=== PATIENT | female | born 1960 | race Caucasian/White ===

== ENCOUNTER 2021-04-19 21:22 | Inpatient (IN) | payer MEDICAID, SELFPAY ==
--- NOTE | 2021-04-19 | ECG_ITS ---
Test Reason : Shortness of breath Blood Pressure : / mmHG Vent. Rate : 082 BPM Atrial Rate : 082 BPM P-R Int : 118 ms QRS Dur : 088 ms QT Int : 374 ms P-R-T Axes : 049 022 026 degrees QTc Int : 436 ms Normal sinus rhythm Normal ECG When compared with ECG of 31-MAY-2008 19:52, No significant change was found Referred By: Generic ED Physician Electronically Signed By:WARREN MEDINA MD
--- NOTE | ~2021-04-19 | XR_ITS ---
EXAMINATION: XR CHEST CLINICAL INFORMATION: Shortness of breath COMPARISON: 05/31/2008 TECHNIQUE: Frontal view of the chest was obtained. FINDINGS: Cardiac leads overlie the chest. The lungs are well expanded. Patchy bilateral airspace opacities with bronchial wall thickening. No pleural effusion or pneumothorax. The cardiomediastinal silhouette is unchanged. XR/XR chest 1V IMPRESSION: Bronchial wall thickening with patchy bilateral airspace opacities suggestive of infectious or inflammatory process.
--- NOTE | ~2021-04-19 | CT_ITS ---
EXAMINATION: CT CHEST WITHOUT CONTRAST CLINICAL INFORMATION: Hypoxia area Covid positive. COMPARISON: Previous chest x-rays most recent 04/19/2021 TECHNIQUE: Multidetector volumetric CT imaging of the chest was done. Axial MIP volume rendering provided. Sagittal and coronal reformatted images were obtained. This CT examination was performed using dose optimization techniques as appropriate, variously including the following: *Automated exposure control *Adjustment of mA and/or kV according to patient size (this includes techniques or standardized protocols for targeted exams where dose is matched to indication/reason for exam; i.e. extremities or head) *Use of iterative reconstruction technique DLP: 356 mGy-cm FINDINGS: LUNGS: There are patchy bilateral groundglass attenuation infiltrates seen throughout the lungs. Chest CT appearance is nonspecific but would be consistent with Covid infection. Other viral pneumonia, organizing pneumonia, drug toxicity and collagen vascular disease should be considered. This does not appear appreciably changed from previous chest x-ray 04/19/2021 MEDIASTINUM: There are small mediastinal lymph nodes. No enlarged lymph nodes are seen. The heart is upper normal in size. The thoracic aorta is normal in caliber. There is no pericardial effusion. PLEURA: There is no pleural effusion. No pleural mass or thickening. AXILLA: No lymphadenopathy. UPPER ABDOMEN: The spleen is enlarged measuring 14 cm in length. There may be mild cirrhotic changes of the liver. The gallbladder has been removed. There are bilateral renal stones. OSSEOUS STRUCTURES: There are degenerative changes of the spine. CT/CT chest wo con IMPRESSION: Bilateral groundglass attenuation infiltrates similar to 04/19/2021 chest x-ray exam. Chest CT appearance is nonspecific but would be compatible with Covid infection. Probable cirrhotic changes of the liver. Splenomegaly. Bilateral renal stones. Fleischner guidelines were followed.
[2021-04-19 21:59] VITALS: BP 137/65; BP 166/88; PULSE 97; RESP 24; TEMP 37.4; O2SAT 94; BMI 53.1
--- NOTE | 2021-04-19 22:27 | ED_ITS ---
HPI - SOB/Dyspnea General Chief Complaint: Dyspnea Stated Complaint: SOB Time Seen by Provider: 04/19/21 22:26 Source: patient Mode of arrival: EMS Limitations: no limitations History of Present Illness HPI Narrative: Patient morbidly obese with past medical history of asthma/COPD, type 2 diabetes mellitus, chronic liver disease smoker just discharged from [facility] on 03/27 for right chest wall abscess MRSA positive discharged on doxycycline for 5 days comes here as since discharge she been feeling short of breath with continuous cough saturating 89% at room air patient is not on home oxygen patient were tested negative for COVID has subjective fever and chills with multiple complaints Related Data Allergies Allergy/AdvReac Type Severity Reaction Status Date / Time No Known Allergies Allergy Verified 04/19/21 21:59 Review of Systems Review of Systems: Yes all other systems are reviewed and are negative [facility] Social History Social History Advance Directives: No Advance Directives Information Provided: Yes Physical Exam Vital Signs: Vital Signs: Last Vital Signs Temp 98.8 F 04/19/21 22:46 Pulse 80 04/19/21 23:27 Resp 18 04/19/21 23:27 BP 113/69 04/19/21 22:46 Pulse Ox 4 L 04/19/21 22:46 Oxygen Flow Rate 4 04/19/21 21:59 BMI result Body Mass Index 53.1 Appearance: Alert. Oriented X3. No acute distress. Obese Eyes: No pallor or icterus ENT: Pharynx normal. Oral Mucosa moist Neck: Normal inspection. Neck supple. CVS: Normal heart rate and rhythm. Pulses normal. Respiratory: Prolonged expiration Equal air entry bilateral, no wheezing/rales/rhonchi Abdomen: Soft and nontender. Bowel sounds are present, no mass palpable, no CVA tenderness Skin: Skin warm and dry. Normal skin color. Normal skin turgor. Extremities: No lower extremity edema. No calf tenderness Neuro: Oriented X 3. MDM - SOB/Dyspnea MDM Narrative Medical decision making narrative: Patient with COPD hypoxic 89% at room air already vaccinated against COVID not received a booster COVID test came positive for COVID infection chest x-ray showed bilateral infiltrate will admit patient for acute respiratory failure secondary to COVID-19 Medical Records Attestation: I reviewed the patient's medical records. Lab Data Attestation: I reviewed the patient's lab results. Result diagrams: 04/19/21 23:15 04/19/21 23:15 Labs: Lab Results 04/19/21 04/19/21 04/19/21 Range/Units 23:15 23:15 23:15 WBC 3.5 L (4.8-10.8) X10*3/uL RBC 3.99 L (4.20-5.50) X10*6/uL Hgb 10.9 L (12.0-16.0) g/dl Hct 34.1 L (37.0-47.0) % MCV 85.5 (80.0-98.0) fL MCH 27.3 (27.0-33.0) pg MCHC 32.0 (31.0-35.0) g/dl RDW 17.4 H (11.0-16.0) % Plt Count 80 L (160-400) X10*3/uL MPV 11.9 (9.4-12.3) fL Immature Gran % (Auto) 0.3 (0.0-0.4) % Neut % (Auto) 73.1 H (45-73) % Lymph % (Auto) 18.9 L (20-40) % [place] % (Auto) 5.4 (2-11) % Eos % (Auto) 2.3 (0-4) % Baso % (Auto) 0.0 (0-2) % Lymph # (Auto) 0.7 L (1.2-4.9) X10*3/uL [place] # (Auto) 0.2 (0.1-1.2) X10*3/uL Eos # (Auto) 0.1 (0.0-0.4) X10*3/uL Baso # (Auto) 0.0 (0.0-0.2) X10*3/uL Abs Immat Gran (auto) 0.01 (0.00-0.03) X10*3/uL Absolute Neuts (auto) 2.6 (2.0-8.3) x10*3/uL Absolute Nucleated RBC 0.000 (0.0-0.012) X10*3/uL Nucleated RBC % (auto) 0.0 (0.0-0.2) /100WBC Smear Tech's Comments VERIFIED Sodium 141 (135-145) mmol/L Potassium 3.2 L (3.3-5.1) mmol/L Chloride 106 (96-108) mmol/L Carbon Dioxide 26 (22-29) mmol/L Anion Gap 12 (12-20) BUN 13 (9-16) mg/dL Creatinine 0.83 (0.5-1.4) mg/dL Estim Creat Clear Calc 96.5 Estimated GFR > 60 Random Glucose 133 H (60-115) mg/dL Lactic Acid 1.1 (0.5-2.0) mmol/L Calcium 8.6 (8.4-10.2) mg/dL Total Bilirubin 0.5 (0.0-1.0) mg/dL AST 72 H (5-31) U/L ALT 33 H (0-31) U/L Alkaline Phosphatase 88 (39-117) U/L Total Protein 6.7 (6.5-8.0) g/dL Albumin 3.2 L (3.5-5.0) g/dL COVID-19 (JEVON) (Negative) COVID-19 Clin Com 04/19/21 Range/Units 23:24 WBC (4.8-10.8) X10*3/uL RBC (4.20-5.50) X10*6/uL Hgb (12.0-16.0) g/dl Hct (37.0-47.0) % MCV (80.0-98.0) fL MCH (27.0-33.0) pg MCHC (31.0-35.0) g/dl RDW (11.0-16.0) % Plt Count (160-400) X10*3/uL MPV (9.4-12.3) fL Immature Gran % (Auto) (0.0-0.4) % Neut % (Auto) (45-73) % Lymph % (Auto) (20-40) % [place] % (Auto) (2-11) % Eos % (Auto) (0-4) % Baso % (Auto) (0-2) % Lymph # (Auto) (1.2-4.9) X10*3/uL [place] # (Auto) (0.1-1.2) X10*3/uL Eos # (Auto) (0.0-0.4) X10*3/uL Baso # (Auto) (0.0-0.2) X10*3/uL Abs Immat Gran (auto) (0.00-0.03) X10*3/uL Absolute Neuts (auto) (2.0-8.3) x10*3/uL Absolute Nucleated RBC (0.0-0.012) X10*3/uL Nucleated RBC % (auto) (0.0-0.2) /100WBC Smear Tech's Comments Sodium (135-145) mmol/L Potassium (3.3-5.1) mmol/L Chloride (96-108) mmol/L Carbon Dioxide (22-29) mmol/L Anion Gap (12-20) BUN (9-16) mg/dL Creatinine (0.5-1.4) mg/dL Estim Creat Clear Calc Estimated GFR Random Glucose (60-115) mg/dL Lactic Acid (0.5-2.0) mmol/L Calcium (8.4-10.2) mg/dL Total Bilirubin (0.0-1.0) mg/dL AST (5-31) U/L ALT (0-31) U/L Alkaline Phosphatase (39-117) U/L Total Protein (6.5-8.0) g/dL Albumin (3.5-5.0) g/dL COVID-19 (JEVON) Positive A (Negative) COVID-19 Clin Com See Note ECG Data Attestation: I personally reviewed and interpreted this ECG as follows: Interpretation: Normal sinus rhythm heart rate 82 beats per minute normal intervals normal axis normal EKG Discharge Plan Discharge Clinical Impression: Acute respiratory failure due to COVID-19 COPD (chronic obstructive pulmonary disease) Qualifiers: COPD type: COPD with acute exacerbation Qualified Code(s): J44.1 - Chronic obstructive pulmonary disease with (acute) exacerbation Patient Disposition: Admitted As Inpatient
[2021-04-19 22:46] VITALS: BP 113/69; PULSE 78; RESP 16; TEMP 37.1; O2SAT 4
[2021-04-19 23:22] LABS: PLT CLUMP 1; Red Blood Count 3.99 X10*6/uL (4.20-5.50); SCAN SMEAR FLAG 1
[2021-04-19 23:23] LABS: Eosinophils Absolute Auto 0.1 X10*3/uL (0.0-0.4); Eosinophils Percent Auto 2.3 % (0-4); Hematocrit 34.1 % (37.0-47.0); Hemoglobin 10.9 g/dl (12.0-16.0); Imm Gran Abs Auto 0.01 X10*3/uL (0.00-0.03); Imm Gran Pct Auto 0.3 % (0.0-0.4); Lymphocytes Absolute Auto 0.7 X10*3/uL (1.2-4.9); Lymphocytes Percent Auto 18.9 % (20-40); MANUAL DIFF FLAG SCAN; Mean Corpuscular Hemoglobin 27.3 pg (27.0-33.0); Mean Corpuscular Volume 85.5 fL (80.0-98.0); Mean Platelet Volume 11.9 fL (9.4-12.3); Monocytes Absolute Auto 0.2 X10*3/uL (0.1-1.2); Monocytes Percent Auto 5.4 % (2-11); Neutrophils Absolute Auto 2.6 x10*3/uL (2.0-8.3); Neutrophils Percent Auto 73.1 % (45-73); Red Cell Distribution Width 17.4 % (11.0-16.0)
[2021-04-19 23:25] LABS: Platelet Count 80 X10*3/uL (160-400); White Blood Count 3.5 X10*3/uL (4.8-10.8)
[2021-04-19] MEDS: Albuterol/Iprat 2.5/0.5MG 3 ML AMPUL.NEB INHALE (23:26)
[2021-04-19 23:27] VITALS: PULSE 80; RESP 18; O2SAT 92
[2021-04-19 23:33] LABS: Lactic Acid 1.1 mmol/L (0.5-2.0)
[2021-04-19 23:37] LABS: COVID-19 Test Positive (Negative); IDNOW Serial# 9DD0AD1C
[2021-04-19 23:44] LABS: Alanine Aminotransferase 33 U/L (0-31); Albumin Level 3.2 g/dL (3.5-5.0); Alkaline Phosphatase 88 U/L (39-117); Anion Gap 12 (12-20); Aspartate Amino Transferase 72 U/L (5-31); Bilirubin Total 0.5 mg/dL (0.0-1.0); Blood Urea Nitrogen 13 mg/dL (9-16); Calcium 8.6 mg/dL (8.4-10.2); Carbon Dioxide 26 mmol/L (22-29); Chloride 106 mmol/L (96-108); Creatinine Clr Calc Pharmacy 96.5; Estimated Glomerular Filt Rate > 60; Glucose Random 133 mg/dL (60-115); Potassium 3.2 mmol/L (3.3-5.1); Sodium 141 mmol/L (135-145); Total Protein 6.7 g/dL (6.5-8.0)
[2021-04-19 23:47] LABS: SLIDE REVIEW VERIFIED
[2021-04-20] VITALS (11 sets, daily range): BP systolic 103–115; BP diastolic 50–69; PULSE 60–80; RESP 18–28; TEMP 35.9–37.1; O2SAT 88–94; BMI 53.1
[2021-04-20] MEDS: Ketorolac Tromethamine 30 MG/ML VIAL IVPUSH (00:44)
[2021-04-20] MEDS: guaiFEN/Codeine SF 200/20/10ML 10 ML LIQUID PO (00:44)
[2021-04-20] MEDS: cefTRIAXone sodium 1 GM in 0.9 % Sodium Chloride 50 ML IV (00:45)
[2021-04-20] MEDS: dexAMETHasone sod phosphate 10 MG/ML VIAL IVPUSH (00:45)
[2021-04-20] MEDS: Potassium Bicarbonate/Cit AC 25 MEQ TABLET.EFF PO (00:45)
[2021-04-20] MEDS: hydrOXYzine HCL 50 MG TABLET PO ×2 (03:51→21:42)
[2021-04-20] MEDS: Enoxaparin Sodium 40 MG/0.4 ML SYRINGE SUBCUT (03:51)
--- NOTE | 2021-04-20 06:38 | P.HPHOSP_ITS ---
History of Present Illness Date of Service: 04/20/21 Chief Complaint: SOB This is a 61-year-old female past medical history of COPD and as well as anxiety presents to the hospital with complaints of shortness of breath. Patient reports that her symptoms started about 2 weeks ago, have been worsening, she has a cough, sputum production, no lower extremity edema orthopnea or PND. Reports fever at home, some chills. She is also complaining of chest as well as abdominal pain mostly with coughing.denies any palpitations. No nausea or vomiting, no diarrhea or constipation, no urinary symptoms and no lower ext remity edema. On arrival to the ED patient hemodynamically stable with no significant abnormal vitals except for a respiratory rate of 24, found to be 89% on room air. Patient does not use any oxygen at home. Currently on 4 L satting 93%. Labs are significant for WBC count of 3.5, hemoglobin of 10.9, hematocrit 34.1, potassium of 3.2 which was repleted, AST of 72, ALT of 33, COVID-19 positive. Patient reports that she is vaccinated x2 with no booster. She does not Remember the vaccine she received. Chest x-ray shows bronchial wall thickening with patchy bilateral airspace opacities Review of Systems Verdana 4l Review of Systems: Yes all other systems are reviewed and Verdana 4d are negative [facility] Medical History (Updated 04/20/21 @ 06:42 by Manuel Chan MD) Anxiety and depression COPD (chronic obstructive pulmonary disease) Family History (Updated 04/20/21 @ 06:43 by Manuel Chan MD) Other No pertinent family history Surgical History (Updated 04/20/21 @ 06:43 by Maneul Chan MD) History of back surgery History of cholecystectomy Social History (Updated 04/20/21 @ 06:43 by Manuel Chan MD) Alcohol intake: current Patient Tobacco Use Status: Former Tobacco user Tobacco use type: Cigarette Advance Directives: No Advance Directives Information Provided: Yes Meds Allergies Allergy/AdvReac Type Severity Reaction Status Date / Time No Known Allergies Allergy Verified 04/19/21 21:59 Active Medications: Current Medications Acetaminophen (Acetaminophen 325 Mg Tablet) 650 mg PO Q6H PRN PRN Reason: Pain, Mild (Pain Scale 1-3) Albuterol/Ipratropium (Albuterol/Iprat 2.5/0.5mg 3 Ml Ampul.Neb) 3 ml INHALE RQ4H PRN PRN Reason: Shortness of Breath/Wheezing Albuterol/Ipratropium (Albuterol/Iprat 2.5/0.5mg 3 Ml Ampul.Neb) 3 ml INHALE QID [facility] Clonazepam (Clonazepam 0.5 Mg Tablet) 1.5 mg PO BEDTIME PRN PRN Reason: panic attack Dexamethasone Sodium Phosphate (Dexamethasone Sod Phosphate 4 Mg/Ml Vial) 6 mg IVPUSH DAILY [facility] Docusate Sodium (Docusate Sodium 100 Mg Capsule) 100 mg PO DAILY PRN PRN Reason: Constipation Enoxaparin Sodium (Enoxaparin Sodium 40 Mg/0.4 Ml Syringe) 40 mg SUBCUT Q24H [facility] Last Admin: 04/20/21 03:51 Dose: 40 mg Documented by: Hydroxyzine HCl (Hydroxyzine Hcl 50 Mg Tablet) 50 mg PO BEDTIME [facility] Last Admin: 04/20/21 03:51 Dose: 50 mg Documented by: Ondansetron HCl (Ondansetron Hcl 4 Mg/2 Ml Vial) 4 mg IVPUSH Q8H PRN PRN Reason: Nausea and Vomiting Sodium Chloride (0.9 % Sodium Chloride Flush 3 Ml Syringe) 3 ml IVFLUSH QSHIFT [facility] Trazodone HCl (Trazodone Hcl 100 Mg Tablet) 300 mg PO BEDTIME [facility] Home Medications Medication Instructions Recorded Confirmed Last Taken Type albuterol mg INHALATION 04/20/21 04/19/21 History sulfate albuterol INHALATION 04/20/21 Unknown History sulfate 90 mcg/actuation aerosol inhaler cholecalciferol 1,250 mcg PO 04/20/21 04/16/21 History (vitamin D3) 1,250 mcg (50,000 unit) capsule clonazepam 1 mg 1.5 mg PO 04/20/21 04/20/21 04/18/21 21:00 History tablet BEDTIME PRN hydroxyzine HCl 50 mg PO 04/20/21 04/20/21 Unknown History 25 mg tablet BEDTIME trazodone 100 300 mg PO 04/20/21 04/20/21 04/18/21 21:00 History mg tablet BEDTIME Physical Exam Verdana 4l Vital Signs and Narrative: Verdana 4d Verdana 4d Vital Signs: Verdana 4d Verdana 4Bd Last Vital Signs Verdana 4d Putter In New 4d Putter In New 4d Temp 98.7 F 04/20/21 02:46 Putter In New 4d Pulse 74 04/20/21 02:46 Putter In New 4d Resp 20 04/20/21 02:46 BP 115/69 04/20/21 02:46 Pulse Ox 94 04/20/21 02:46 Oxygen Flow Rate 4 04/19/21 21:59 BMI result Body Mass Index 53.1 Results Labs CBC and Chem 7: 04/19/21 23:15 04/19/21 23:15 Labs: Laboratory Results - last 24 hr 04/19/21 04/19/21 04/19/21 23:15 23:15 23:15 MCV 85.5 MCH 27.3 MCHC 32.0 RDW 17.4 H Plt Count 80 L MPV 11.9 Immature Gran % (Auto) 0.3 Neut % (Auto) 73.1 H Lymph % (Auto) 18.9 L [place] % (Auto) 5.4 Eos % (Auto) 2.3 Baso % (Auto) 0.0 Lymph # (Auto) 0.7 L [place] # (Auto) 0.2 Eos # (Auto) 0.1 Baso # (Auto) 0.0 Abs Immat Gran (auto) 0.01 Absolute Neuts (auto) 2.6 Absolute Nucleated RBC 0.000 Nucleated RBC % (auto) 0.0 Smear Tech's Comments VERIFIED Anion Gap 12 Estim Creat Clear Calc 96.5 Estimated GFR > 60 Random Glucose 133 H Lactic Acid 1.1 Calcium 8.6 Total Bilirubin 0.5 AST 72 H ALT 33 H Alkaline Phosphatase 88 Total Protein 6.7 Albumin 3.2 L COVID-19 (JEVON) COVID-19 Clin Com 04/19/21 23:24 MCV MCH MCHC RDW Plt Count MPV Immature Gran % (Auto) Neut % (Auto) Lymph % (Auto) [place] % (Auto) Eos % (Auto) Baso % (Auto) Lymph # (Auto) [place] # (Auto) Eos # (Auto) Baso # (Auto) Abs Immat Gran (auto) Absolute Neuts (auto) Absolute Nucleated RBC Nucleated RBC % (auto) Smear Tech's Comments Anion Gap Estim Creat Clear Calc Estimated GFR Random Glucose Lactic Acid Calcium Total Bilirubin AST ALT Alkaline Phosphatase Total Protein Albumin COVID-19 (JEVON) Positive A COVID-19 Clin Com See Note ECG Interpretation: Normal sinus rhythm with no ST T wave changes Imaging Radiologist's Impressions: Impressions Chest X-Ray 04/19/21 23:08 IMPRESSION: Bronchial wall thickening with patchy bilateral airspace opacities suggestive of infectious or inflammatory process. Assessment and Plan (1) Acute respiratory failure due to COVID-19: Status: Acute (2) Acute on chronic respiratory failure with hypoxia: Status: Acute (3) COPD exacerbation: Status: Acute Plan 60-year-old female with past medical history of COPD presents the hospital with complaints of shortness of breath found to have COPD exacerbation as well as COVID-19 pneumonia # acute hypoxic respiratory failure - secondary to COVID-19 pneumonia as well as COPD exacerbation - will treat with dexamethasone 6 mg daily, DuoNeb treatment - was hypoxic in the 80s, now on 4 L of oxygen satting 94% - monitor respiratory status - reports vaccinated but does not remember the vaccine - will obtain procalcitonin to rule out bacterial infection given the chronicity of her symptoms for 2 weeks # acute COPD exacerbation - will treat with dexamethasone, DuoNeb treatments, an add azithromycin - monitor respiratory status # anxiety and depression - continue home medications DVT prophylaxis: Lovenox Quality Stroke Does the patient have a stroke diagnosis?: No VTE Prior VTE?: No VTE Risk Level:: Medical - moderate - high VTE Device Contraindication: Treatment Not Indicated VTE Drug Contraindication: N/A - Med Ordered
[2021-04-20] MEDS: Albuterol/Iprat 2.5/0.5MG 3 ML AMPUL.NEB INHALE ×3 (07:47→19:16)
--- NOTE | 2021-04-20 08:15 | PM.EVENT ---
Event Note Date of Service: 04/20/21 Event Note: Patient seen and examined-seems to be still sob and has cough physical exam : unchanged. Assessment and plan coordianted in h&p -acute hypoxic respiratory failure - secondary to COVID-19 pneumonia as well as COPD exacerbation continue nebs, steriods , antibiotics pulm eval
--- NOTE | 2021-04-20 08:32 | PHA.MEDREC ---
Pharmacy Consult ? Medication Reconciliation Pharmacy has reviewed the medication reconciliation compeleted by Cora smiley. Medications were add to the home list include albuterol, omeprazole, flonase and vitamin d3. Elisha Merrill, RosyD
[2021-04-20 09:03] LABS: MANUAL DIFF FLAG NO
[2021-04-20 09:05] LABS: Hematocrit 40.3 % (37.0-47.0); Hemoglobin 12.5 g/dl (12.0-16.0); Imm Gran Abs Auto 0.04 X10*3/uL (0.00-0.03); Imm Gran Pct Auto 1.1 % (0.0-0.4); Lymphocytes Absolute Auto 0.5 X10*3/uL (1.2-4.9); Lymphocytes Percent Auto 14.2 % (20-40); Mean Corpuscular Hemoglobin 26.5 pg (27.0-33.0); Mean Corpuscular Volume 85.6 fL (80.0-98.0); Mean Platelet Volume 11.9 fL (9.4-12.3); Monocytes Absolute Auto 0.1 X10*3/uL (0.1-1.2); Neutrophils Percent Auto 81.7 % (45-73); Red Blood Count 4.71 X10*6/uL (4.20-5.50); Red Cell Distribution Width 17.5 % (11.0-16.0); White Blood Count 3.7 X10*3/uL (4.8-10.8)
[2021-04-20 09:08] LABS: Platelet Count 85 X10*3/uL (160-400)
[2021-04-20] MEDS: dexAMETHasone sod phosphate 4 MG/ML VIAL 6 MG IVPUSH (09:13)
[2021-04-20] MEDS: 0.9 % Sodium Chloride Flush 3 ML SYRINGE IVFLUSH ×3 (09:13→21:43)
[2021-04-20] MEDS: Azithromycin 500 MG in 0.9 % Sodium Chloride 250 ML 125 MG IV (09:13)
[2021-04-20 09:17] LABS: Anion Gap 14 (12-20); Blood Urea Nitrogen 12 mg/dL (9-16); Calcium 8.9 mg/dL (8.4-10.2); Carbon Dioxide 27 mmol/L (22-29); Chloride 105 mmol/L (96-108); Estimated Glomerular Filt Rate > 60; Glucose Random 196 mg/dL (60-115); Potassium 4.1 mmol/L (3.3-5.1); Sodium 142 mmol/L (135-145)
[2021-04-20 09:39] LABS: Procalcitonin 0.18 ng/mL
--- NOTE | 2021-04-20 13:05 | MHC.CM.PN ---
Patient is Covid (+); CM spoke with her at her room ext. [phone]. Patient lives in an apartment with her 18 year old Son and she uses both a cane and walker to assist with mobility.Patient is requesting a new referral to [facility] and she has 12 [employer] hours/week.Home with services is the goal for dc and CM has initiated and will follow for dc planning. PCP is Dr. Bety Trujillo.
[2021-04-20] MEDS: Acetaminophen 325 MG TABLET 650 MG PO ×2 (14:01→21:43)
[2021-04-20] MEDS: Omeprazole 20 MG CAPSULE.DR PO (14:02)
[2021-04-20] MEDS: Benzonatate 100 MG CAPSULE 200 MG PO ×2 (14:04→21:43)
[2021-04-20] MEDS: traZODone HCL 100 MG TABLET 300 MG PO (21:42)
[2021-04-21] VITALS (11 sets, daily range): BP systolic 110–144; BP diastolic 54–78; PULSE 56–72; RESP 16–24; TEMP 36.2–36.9; O2SAT 90–93
[2021-04-21] MEDS: traMADoL HCL 50 MG TABLET PO (00:58)
[2021-04-21] MEDS: Enoxaparin Sodium 40 MG/0.4 ML SYRINGE SUBCUT (03:24)
[2021-04-21] MEDS: Azithromycin 500 MG in 0.9 % Sodium Chloride 250 ML 125 MG IV (07:07)
[2021-04-21] MEDS: 0.9 % Sodium Chloride Flush 3 ML SYRINGE IVFLUSH ×2 (07:08→09:56)
[2021-04-21 07:47] LABS: Anion Gap 12 (12-20); Blood Urea Nitrogen 17 mg/dL (9-16); Carbon Dioxide 27 mmol/L (22-29); Chloride 106 mmol/L (96-108); Creatinine Clr Calc Pharmacy 109.7; Estimated Glomerular Filt Rate > 60; Glucose Random 139 mg/dL (60-115); Potassium 4.3 mmol/L (3.3-5.1); Sodium 141 mmol/L (135-145)
[2021-04-21] MEDS: Albuterol/Iprat 2.5/0.5MG 3 ML AMPUL.NEB INHALE ×4 (07:51→20:24)
--- NOTE | 2021-04-21 09:13 | P.PNIM_ITS ---
Subjective Subjective Date of Service: 04/21/21 Interval History: acute hypoxic respiratory failure- secondary to COVID-19 pneumonia as well as COPD exacerbation Review of Systems sob still similar to yesterday oxygen demand seems to be slowly worsening Denies any chest pain or abdominal pain or nausea or vomiting or fever or chills Has cough Physical Exam Verdana 4l Vital Signs: Verdana 4d Verdana 4d Vital Signs: Verdana 4d Verdana 4Bd Last Vital Signs Verdana 4d [employer] New 4d [employer] New 4d Temp 97.1 F 04/21/21 07:39 [employer] New 4d Pulse 67 04/21/21 08:00 [employer] New 4d Resp 20 04/21/21 08:00 BP 119/62 04/21/21 07:39 Pulse Ox 92 04/21/21 07:39 Oxygen Flow Rate 4 04/19/21 21:59 BMI result Body Mass Index 53.1 Appearance: Alert.? Oriented X3.? No acute distress.? Obese Eyes:? No pallor or icterus ENT: Pharynx normal. Oral Mucosa moist CVS: rrr , s1s2 heard.? Respiratory:? Prolonged expiration? Equal air entry bilateral sllightly dimiahsed at bases. Abdomen: Soft and nontender.? Bowel sounds are present, no mass palpable, no CVA tenderness Skin: Skin warm and dry.? Normal skin color.? Normal skin turgor. Extremities: No lower extremity edema.? No calf tenderness Neuro: Oriented X 3.? Objective Data Active Medications Acetaminophen (Acetaminophen 325 Mg Tablet) 650 mg PO Q6H PRN PRN Reason: Pain, Mild (Pain Scale 1-3) Last Admin: 04/20/21 21:43 Dose: 650 mg Documented by: ADY Albuterol/Ipratropium (Albuterol/Iprat 2.5/0.5mg 3 Ml Ampul.Neb) 3 ml INHALE RQ4H PRN PRN Reason: Shortness of Breath/Wheezing Albuterol/Ipratropium (Albuterol/Iprat 2.5/0.5mg 3 Ml Ampul.Neb) 3 ml INHALE QID OZZIE Last Admin: 04/21/21 07:51 Dose: 3 ml Documented by: SIRI Benzonatate (Benzonatate 100 Mg Capsule) 200 mg PO TID PRN PRN Reason: Cough Last Admin: 04/20/21 21:43 Dose: 200 mg Documented by: ADY Clonazepam (Clonazepam 0.5 Mg Tablet) 1.5 mg PO BEDTIME PRN PRN Reason: panic attack Dexamethasone Sodium Phosphate (Dexamethasone Sod Phosphate 4 Mg/Ml Vial) 6 mg IVPUSH DAILY [facility] Last Admin: 04/20/21 09:13 Dose: 6 mg Documented by: MIGUEL ANGEL Docusate Sodium (Docusate Sodium 100 Mg Capsule) 100 mg PO DAILY PRN PRN Reason: Constipation Enoxaparin Sodium (Enoxaparin Sodium 40 Mg/0.4 Ml Syringe) 40 mg SUBCUT Q24H [facility] Last Admin: 04/21/21 03:24 Dose: 40 mg Documented by: ADY Fluticasone Propionate (Fluticasone Propionate Nasal 16 Gm [place]) 1 spray NOSTRIL-B DAILY PRN PRN Reason: Allergy Symptoms Hydroxyzine HCl (Hydroxyzine Hcl 50 Mg Tablet) 50 mg PO BEDTIME [facility] Last Admin: 04/20/21 21:42 Dose: 50 mg Documented by: ADY Hydroxyzine HCl (Hydroxyzine Hcl 50 Mg Tablet) 50 mg PO BID@1200,2100 PRN PRN Reason: Anxiety Azithromycin 500 mg/ Sodium (Chloride) 250 mls @ 125 mls/hr IV Q24H [facility] Last Admin: 04/21/21 07:07 Dose: 125 mls/hr Documented by: ADY Non-Formulary Medication (Cholecalciferol (Vitamin D3)) 1,250 mcg PO [facility] Omeprazole (Omeprazole 20 Mg Capsule.Dr) 20 mg PO DAILY [facility] Last Admin: 04/20/21 14:02 Dose: 20 mg Documented by: JESSICA Ondansetron HCl (Ondansetron Hcl 4 Mg/2 Ml Vial) 4 mg IVPUSH Q8H PRN PRN Reason: Nausea and Vomiting Sodium Chloride (0.9 % Sodium Chloride Flush 3 Ml Syringe) 3 ml IVFLUSH QSHIFT [facility] Last Admin: 04/21/21 07:08 Dose: 3 ml Documented by: ADY Trazodone HCl (Trazodone Hcl 100 Mg Tablet) 300 mg PO BEDTIME [facility] Last Admin: 04/20/21 21:42 Dose: 300 mg Documented by: ADY Labs CBC & Chem 7: 04/20/21 08:50 04/21/21 06:42 Labs: Laboratory Results - last 24 hr 04/20/21 04/20/21 04/21/21 08:50 08:50 06:42 Anion Gap 14 12 Estim Creat Clear Calc 92.0 109.7 Estimated GFR > 60 > 60 Random Glucose 196 H 139 H Calcium 8.9 9.0 Procalcitonin 0.18 Microbiology Microbiology Results: Microbiology 04/19/21 23:16 Blood Culture - Preliminary Blood - Venous No growth after 24 hours. 04/19/21 23:15 Blood Culture - Preliminary Blood - Venous No growth after 24 hours. Assessment and Plan (1) Acute respiratory failure due to COVID-19: Status: Acute (2) COPD exacerbation: Status: Acute Plan 60-year-old female with past medical history of COPD presents the hospital with complaints of shortness of breath found to have COPD exacerbation as well as COVID-19 pneumonia 1.acute hypoxic respiratory failure- secondary to COVID-19 pneumonia as well as COPD exacerbation - will treat with dexamethasone 6 mg daily, DuoNeb treatment still worsening oxygen demand - monitor respiratory status - reports vaccinated but does not remember the vaccine - will obtain procalcitonin to rule out bacterial infection given the chronicity of her symptoms for 2 weeks 2. acute COPD exacerbation - will treat with dexamethasone, DuoNeb treatments, add azithromycin - monitor respiratory status 3. anxiety and depression - continue home medications DVT prophylaxis: Lovenox Quality Stroke Does the patient have a stroke diagnosis?: No VTE Prior VTE?: No VTE Risk Level:: Medical - moderate - high VTE Device Contraindication: Treatment Not Indicated VTE Drug Contraindication: N/A - Med Ordered
--- NOTE | 2021-04-21 09:43 | P.CONPL_ITS ---
History of Present Illness History of Present Illness Consult date: 04/21/21 Reason for consult: dyspnea, cough and hypoxemia Chief complaint: COPD Exacerbation - Covid 19 hypoxia Narrative: This 60 years old female was seen by me this morning for pulmonary consultation. She has been admitted, with 2 weeks history of cough increased shortness of breath and chest congestion. Patient not sure if she has had any fever or not. She presented to the emergency room mainly because of increasing shortness of breath and on arrival found to have hypoxemia. Chest x-ray is grossly abnormal. COVID 19 test is positive, as mentioned above her symptoms started about 2 weeks ago. Patient has had 2 vaccine shorts , but not the booster ( not sure if she had Pfizer or Moderna vaccine ) This patient does have history of chronic obstructive pulmonary disease for a few years, She has been using just albuterol p.r.n.. Also has history of chronic anxiety, and does not remember things well. She has past history of smoking but quit a few years ago. Review of Systems Verdana 4l Review of Systems: Verdana 4d This patient is main Verdana 4d complaints are pertaining to the respiratory system as described above, In addition she has the generalized weakness, No other details available. Verdana 4d Yes all other systems are reviewed and are negative PMFSH Past Medical History Medical History (Updated 04/21/21 @ 09:53 by Timothy Soler MD) Anxiety and depression COPD (chronic obstructive pulmonary disease) COPD (chronic obstructive pulmonary disease) COVID-19 Pneumonia Family History Family History Other No pertinent family history Surgical History Surgical History History of back surgery History of cholecystectomy Social History Social History Household Members: Family Caregiver staying overnight: No Housing: House Alcohol intake: current Patient Tobacco Use Status: Former Tobacco user Tobacco use type: Cigarette service: No Current occupational status: disabled Meds Allergies Allergy/AdvReac Type Severity Reaction Status Date / Time No Known Allergies Allergy Verified 04/19/21 21:59 Active Medications: Current Medications Acetaminophen (Acetaminophen 325 Mg Tablet) 650 mg PO Q6H PRN PRN Reason: Pain, Mild (Pain Scale 1-3) Last Admin: 04/20/21 21:43 Dose: 650 mg Documented by: Albuterol/Ipratropium (Albuterol/Iprat 2.5/0.5mg 3 Ml Ampul.Neb) 3 ml INHALE RQ4H PRN PRN Reason: Shortness of Breath/Wheezing Albuterol/Ipratropium (Albuterol/Iprat 2.5/0.5mg 3 Ml Ampul.Neb) 3 ml INHALE QID [facility] Last Admin: 04/21/21 07:51 Dose: 3 ml Documented by: Benzonatate (Benzonatate 100 Mg Capsule) 200 mg PO TID PRN PRN Reason: Cough Last Admin: 04/20/21 21:43 Dose: 200 mg Documented by: Clonazepam (Clonazepam 0.5 Mg Tablet) 1.5 mg PO BEDTIME PRN PRN Reason: panic attack Dexamethasone Sodium Phosphate (Dexamethasone Sod Phosphate 4 Mg/Ml Vial) 6 mg IVPUSH DAILY [facility] Last Admin: 04/20/21 09:13 Dose: 6 mg Documented by: Docusate Sodium (Docusate Sodium 100 Mg Capsule) 100 mg PO DAILY PRN PRN Reason: Constipation Enoxaparin Sodium (Enoxaparin Sodium 40 Mg/0.4 Ml Syringe) 40 mg SUBCUT Q24H [facility] Last Admin: 04/21/21 03:24 Dose: 40 mg Documented by: Ergocalciferol (Ergocalciferol (Vitamin D2) 1,250 Mcg Capsule) 1,250 mcg PO [facility] Fluticasone Propionate (Fluticasone Propionate Nasal 16 Gm [place]) 1 spray NOSTRIL-B DAILY PRN PRN Reason: Allergy Symptoms Hydroxyzine HCl (Hydroxyzine Hcl 50 Mg Tablet) 50 mg PO BEDTIME [facility] Last Admin: 04/20/21 21:42 Dose: 50 mg Documented by: Hydroxyzine HCl (Hydroxyzine Hcl 50 Mg Tablet) 50 mg PO BID@1200,2100 PRN PRN Reason: Anxiety Azithromycin 500 mg/ Sodium (Chloride) 250 mls @ 125 mls/hr IV Q24H [facility] Last Admin: 04/21/21 07:07 Dose: 125 mls/hr Documented by: Omeprazole (Omeprazole 20 Mg Capsule.) 20 mg PO DAILY [facility] Last Admin: 04/20/21 14:02 Dose: 20 mg Documented by: Ondansetron HCl (Ondansetron Hcl 4 Mg/2 Ml Vial) 4 mg IVPUSH Q8H PRN PRN Reason: Nausea and Vomiting Sodium Chloride (0.9 % Sodium Chloride Flush 3 Ml Syringe) 3 ml IVFLUSH QSHIFT [facility] Last Admin: 04/21/21 07:08 Dose: 3 ml Documented by: Trazodone HCl (Trazodone Hcl 100 Mg Tablet) 300 mg PO BEDTIME [facility] Last Admin: 04/20/21 21:42 Dose: 300 mg Documented by: Home Medications Medication Instructions Recorded Confirmed Last Taken Type albuterol sulfate 2.5 mg 04/20/21 04/20/21 04/18/21 History INHALATION Q4H PRN albuterol sulfate 2 puff 04/20/21 04/20/21 04/18/21 History 90 mcg/actuation INHALATION Q4H PRN aerosol inhaler cholecalciferol 1,250 mcg PO SA 04/20/21 04/20/21 04/18/21 History (vitamin D3) 1,250 mcg (50,000 unit) capsule clonazepam 1 mg 1.5 mg PO 04/20/21 04/20/21 04/18/21 History tablet BEDTIME fluticasone 1 spray 04/20/21 04/20/21 04/18/21 History propionate 50 INTRANASAL DAILY PRN mcg/actuation nasal spray,suspension hydroxyzine HCl 1 tab PO 04/20/21 04/20/21 04/18/21 History 50 mg tablet BID@1200,2100 PRN ibuprofen 800 mg 1 tab PO BID PRN 04/20/21 04/20/21 04/18/21 History tablet omeprazole 20 mg 1 cap PO DAILY 04/20/21 04/20/21 04/18/21 History capsule,delayed release trazodone 100 mg 300 mg PO 04/20/21 04/20/21 04/18/21 History tablet BEDTIME Physical Exam Verdana 4l Vital Signs: Verdana 4d Verdana 4d Vital Signs: Verdana 4d Verdana 4Bd Last Vital Signs Verdana 4d Galley Hand New 4d Galley Hand New 4d Temp 97.1 F 04/21/21 07:39 Galley Hand New 4d Pulse 67 04/21/21 08:00 Galley Hand New 4d Resp 20 04/21/21 08:00 BP 119/62 04/21/21 07:39 Pulse Ox 92 04/21/21 07:39 Oxygen Flow Rate 4 04/19/21 21:59 BMI result Body Mass Index 53.1 Const: General: no acute distress (But she starts having lot of cough and is dyspneic during conversation), alert and awake Orientation/consciousness: patient oriented x3 HENMT: Head: Yes normal to inspection General nose exam: No nasal polyps present and No nasal discharge present Face and sinus: Yes sinuses nontender Mouth: oropharynx normal Throat: Yes posterior oropharynx normal Eyes: General: appearance normal, both eyes and all related structures Neck: Neck: Yes normal visual inspection, Yes no lymphadenopathy, Yes trachea midline and Yes no JVD Thyroid: Thyroid normal Chest: Chest palpation & inspection: normal inspection of the chest, normal palpation of entire chest wall and no tenderness Resp: Other: Percussion note resonant, cannot take deep breaths because of the cough. Breath sounds distant. Inspiratory crackles heard over the lower lobes, especially on the back. No wheezes Cardio: Palpation: normal PMI Rate: regular rate Rhythm: regular rhythm Heart sounds: no gallops and no murmurs Peripheral pulses: Peripheral pulses 2+ throughout GI: Palpation (GI): Soft to palpation, nontender, No hepatosplenomegaly present and no masses Auscultation: normal bowel sounds Back/Spine/Pelvis: Other: Could not examine Skin: General skin exam: no rashes or lesions noted Neuro: General: patient oriented x3 and no focal motor deficits Extrem: General: Yes normal to inspection, Yes no clubbing, cyanosis or edema and Yes no calf tenderness Psych: Appearance: grossly normal Speech and movement: Normal speech and movement present Results Laboratory Findings CBC and BMP: 04/20/21 08:50 04/21/21 06:42 Abnormal lab findings: Abnormal Labs 04/19/21 04/19/21 04/19/21 23:15 23:15 23:24 WBC 3.5 L RBC 3.99 L Hgb 10.9 L Hct 34.1 L MCH RDW 17.4 H Plt Count 80 L Immature Gran % (Auto) Neut % (Auto) 73.1 H Lymph % (Auto) 18.9 L Lymph # (Auto) 0.7 L Abs Immat Gran (auto) Potassium 3.2 L BUN Random Glucose 133 H AST 72 H ALT 33 H Albumin 3.2 L COVID-19 ([facility]) Positive A 04/20/21 04/20/21 04/21/21 08:50 08:50 06:42 WBC 3.7 L RBC Hgb Hct MCH 26.5 L RDW 17.5 H Plt Count 85 L Immature Gran % (Auto) 1.1 H Neut % (Auto) 81.7 H Lymph % (Auto) 14.2 L Lymph # (Auto) 0.5 L Abs Immat Gran (auto) 0.04 H Potassium BUN 17 H Random Glucose 196 H 139 H AST ALT Albumin COVID-19 ([facility]EVON) Microbiology: Microbiology 04/19/21 23:16 Blood - Venous Blood Culture - Preliminary No growth after 24 hours. 04/19/21 23:15 Blood - Venous Blood Culture - Preliminary No growth after 24 hours. Diagnostic Findings Chest x-ray: report reviewed and image reviewed Assessment and Plan (1) COVID-19: Status: Acute As per history symptoms onset was about 2 weeks ago, Positive COVID test and chest findings are C/W COVID pneumonitis. (2) Pneumonia: Status: Acute As per chest x-ray she has bilateral patchy alveolar densities consistent with diffuse pneumonitis, most likely secondary to COVID-19. But super added bacterial infection cannot be ruled out. (3) Acute respiratory failure due to COVID-19: Status: Acute (4) COPD exacerbation: Status: Acute Plan CT scan of the chest should be done to further evaluate the extent of alveolar disease. Continue dexamethasone 6 mg IV daily X 10 DAYS. At this stage I think she can be treated with Baricitinib, 4 mg daily for 14 days. Continue O2 by nasal cannula currently at 10 L/minute, watch for increasing respiratory distress. She may need to go on high-flow oxygen. Goal is to keep O2 sat above 90%. Procedures Date of Service Date of Service: 04/21/21
[2021-04-21 09:48] LABS: Venous Blood Gas Refer to POC result
[2021-04-21 09:49] LABS: VBG Base Excess 1.1 mmol/L; VBG HCO3 25 mmol/L (22-26); VBG pCO2 38 mmHg; VBG pH 7.42 (7.32-7.43); VBG pO2 52 mmHg
[2021-04-21] MEDS: Omeprazole 20 MG CAPSULE.DR PO (09:55)
[2021-04-21] MEDS: dexAMETHasone sod phosphate 4 MG/ML VIAL 6 MG IVPUSH (09:55)
--- NOTE | 2021-04-21 09:57 | P.CONPL_ITS ---
History of Present Illness History of Present Illness Chief complaint: COPD Exacerbation - Covid 19 hypoxia Review of Systems Verdana 4l Review of Systems: Verdana 4d This patient is main Verdana 4d complaints are pertaining to the respiratory system as described above, In addition she has the generalized weakness, No other details available. Verdana 4d Yes all other systems are reviewed and are negative PMFSH Past Medical History Medical History (Updated 04/21/21 @ 09:53 by Timothy Soler MD) Anxiety and depression COPD (chronic obstructive pulmonary disease) COPD (chronic obstructive pulmonary disease) COVID-19 Pneumonia Family History Family History Other No pertinent family history Surgical History Surgical History History of back surgery History of cholecystectomy Social History Social History Household Members: Family Caregiver staying overnight: No Housing: House Alcohol intake: current Patient Tobacco Use Status: Former Tobacco user Tobacco use type: Cigarette service: No Current occupational status: [employer] Allergies Allergy/AdvReac Type Severity Reaction Status Date / Time No Known Allergies Allergy Verified 04/19/21 21:59 Active Medications: Current Medications Acetaminophen (Acetaminophen 325 Mg Tablet) 650 mg PO Q6H PRN PRN Reason: Pain, Mild (Pain Scale 1-3) Last Admin: 04/20/21 21:43 Dose: 650 mg Documented by: Albuterol/Ipratropium (Albuterol/Iprat 2.5/0.5mg 3 Ml Ampul.Neb) 3 ml INHALE RQ4H PRN PRN Reason: Shortness of Breath/Wheezing Albuterol/Ipratropium (Albuterol/Iprat 2.5/0.5mg 3 Ml Ampul.Neb) 3 ml INHALE QID [facility] Last Admin: 04/21/21 07:51 Dose: 3 ml Documented by: Benzonatate (Benzonatate 100 Mg Capsule) 200 mg PO TID PRN PRN Reason: Cough Last Admin: 04/20/21 21:43 Dose: 200 mg Documented by: Clonazepam (Clonazepam 0.5 Mg Tablet) 1.5 mg PO BEDTIME PRN PRN Reason: panic attack Dexamethasone Sodium Phosphate (Dexamethasone Sod Phosphate 4 Mg/Ml Vial) 6 mg IVPUSH DAILY [facility] Last Admin: 04/20/21 09:13 Dose: 6 mg Documented by: Docusate Sodium (Docusate Sodium 100 Mg Capsule) 100 mg PO DAILY PRN PRN Reason: Constipation Enoxaparin Sodium (Enoxaparin Sodium 40 Mg/0.4 Ml Syringe) 40 mg SUBCUT Q24H [facility] Last Admin: 04/21/21 03:24 Dose: 40 mg Documented by: Ergocalciferol (Ergocalciferol (Vitamin D2) 1,250 Mcg Capsule) 1,250 mcg PO SA [facility] Fluticasone Propionate (Fluticasone Propionate Nasal 16 Gm [place]) 1 spray NOS TRIL-B DAILY PRN PRN Reason: Allergy Symptoms Hydroxyzine HCl (Hydroxyzine Hcl 50 Mg Tablet) 50 mg PO BEDTIME [facility] Last Admin: 04/20/21 21:42 Dose: 50 mg Documented by: Hydroxyzine HCl (Hydroxyzine Hcl 50 Mg Tablet) 50 mg PO BID@1200,2100 PRN PRN Reason: Anxiety Azithromycin 500 mg/ Sodium (Chloride) 250 mls @ 125 mls/hr IV Q24H [facility] Last Admin: 04/21/21 07:07 Dose: 125 mls/hr Documented by: Omeprazole (Omeprazole 20 Mg Capsule.Dr) 20 mg PO DAILY [facility] Last Admin: 04/20/21 14:02 Dose: 20 mg Documented by: Ondansetron HCl (Ondansetron Hcl 4 Mg/2 Ml Vial) 4 mg IVPUSH Q8H PRN PRN Reason: Nausea and Vomiting Sodium Chloride (0.9 % Sodium Chloride Flush 3 Ml Syringe) 3 ml IVFLUSH QSHIFT [facility] Last Admin: 04/21/21 07:08 Dose: 3 ml Documented by: Trazodone HCl (Trazodone Hcl 100 Mg Tablet) 300 mg PO BEDTIME [facility] Last Admin: 04/20/21 21:42 Dose: 300 mg Documented by: Home Medications Medication Instructions Recorded Confirmed Last Taken Type albuterol sulfate 2.5 mg 04/20/21 04/20/21 04/18/21 History INHALATION Q4H PRN albuterol sulfate 2 puff 04/20/21 04/20/21 04/18/21 History 90 mcg/actuation INHALATION Q4H PRN aerosol inhaler cholecalciferol 1,250 mcg PO SA 04/20/21 04/20/21 04/18/21 History (vitamin D3) 1,250 mcg (50,000 unit) capsule clonazepam 1 mg 1.5 mg PO 04/20/21 04/20/21 04/18/21 History tablet BEDTIME fluticasone 1 spray 04/20/21 04/20/21 04/18/21 History propionate 50 INTRANASAL DAILY PRN mcg/actuation nasal spray,suspension hydroxyzine HCl 1 tab PO 04/20/21 04/20/21 04/18/21 History 50 mg tablet BID@1200,2100 PRN ibuprofen 800 mg 1 tab PO BID PRN 04/20/21 04/20/21 04/18/21 History tablet omeprazole 20 mg 1 cap PO DAILY 04/20/21 04/20/21 04/18/21 History capsule,delayed release trazodone 100 mg 300 mg PO 04/20/21 04/20/21 04/18/21 History tablet BEDTIME Physical Exam Verdana 4l Vital Signs: Verdana 4d Verdana 4d Vital Signs: Verdana 4d Verdana 4Bd Last Vital Signs Verdana 4d Advertising Consultant New 4d Advertising Consultant New 4d Temp 97.1 F 04/21/21 07:39 Advertising Consultant New 4d Pulse 67 04/21/21 08:00 Advertising Consultant New 4d Resp 20 04/21/21 08:00 BP 119/62 04/21/21 07:39 Pulse Ox 92 04/21/21 07:39 Oxygen Flow Rate 4 04/19/21 21:59 BMI result Body Mass Index 53.1 Results Laboratory Findings CBC and BMP: 04/20/21 08:50 04/21/21 06:42 Abnormal lab findings: Abnormal Labs 04/19/21 04/19/21 04/19/21 23:15 23:15 23:24 WBC 3.5 L RBC 3.99 L Hgb 10.9 L Hct 34.1 L MCH RDW 17.4 H Plt Count 80 L Immature Gran % (Auto) Neut % (Auto) 73.1 H Lymph % (Auto) 18.9 L Lymph # (Auto) 0.7 L Abs Immat Gran (auto) Potassium 3.2 L BUN Random Glucose 133 H AST 72 H ALT 33 H Albumin 3.2 L COVID-19 ([facility]) Positive A 04/20/21 04/20/21 04/21/21 08:50 08:50 06:42 WBC 3.7 L RBC Hgb Hct MCH 26.5 L RDW 17.5 H Plt Count 85 L Immature Gran % (Auto) 1.1 H Neut % (Auto) 81.7 H Lymph % (Auto) 14.2 L Lymph # (Auto) 0.5 L Abs Immat Gran (auto) 0.04 H Potassium BUN 17 H Random Glucose 196 H 139 H AST ALT Albumin COVID-19 ([facility]) Microbiology: Microbiology 04/19/21 23:16 Blood - Venous Blood Culture - Preliminary No growth after 24 hours. 04/19/21 23:15 Blood - Venous Blood Culture - Preliminary No growth after 24 hours.
[2021-04-21] MEDS: Benzonatate 100 MG CAPSULE 200 MG PO (10:12)
[2021-04-21 13:29] LABS: Alanine Aminotransferase 31 U/L (0-31); Albumin Level 3.1 g/dL (3.5-5.0); Alkaline Phosphatase 82 U/L (39-117); Aspartate Amino Transferase 51 U/L (5-31); Bilirubin Direct 0.2 mg/dL (0.0-0.5); Bilirubin Total 0.3 mg/dL (0.0-1.0); Total Protein 6.7 g/dL (6.5-8.0)
[2021-04-21] MEDS: Acetaminophen 325 MG TABLET 650 MG PO ×2 (16:02→22:33)
[2021-04-21] MEDS: Loperamide HCl 2 MG CAPSULE PO (16:02)
[2021-04-21] MEDS: traZODone HCL 100 MG TABLET 300 MG PO (21:00)
[2021-04-21] MEDS: hydrOXYzine HCL 50 MG TABLET PO (22:34)
[2021-04-22] VITALS (11 sets, daily range): BP systolic 123–148; BP diastolic 60–79; PULSE 58–72; RESP 18–28; TEMP 36–36.3; O2SAT 90–98
[2021-04-22] MEDS: 0.9 % Sodium Chloride Flush 3 ML SYRINGE IVFLUSH ×4 (00:35→21:12)
[2021-04-22] MEDS: clonazePAM 0.5 MG TABLET 1.5 MG PO ×2 (00:36→21:12)
[2021-04-22] MEDS: guaiFENesin LA 600 MG TAB.ER.12H PO (01:49)
[2021-04-22] MEDS: Enoxaparin Sodium 40 MG/0.4 ML SYRINGE SUBCUT (04:30)
--- NOTE | 2021-04-22 05:36 | PC.NURSE ---
pt ambulated to the bathroom with O2 tank; pt can do more than she lets on. Pt tends to hold breath when she becomes anxious; she now has mucinex PRN for cough as she preferred.
[2021-04-22 06:45] LABS: Hematocrit 34.8 % (37.0-47.0); Mean Corpuscular HGB Conc 31.6 g/dl (31.0-35.0); Mean Corpuscular Hemoglobin 26.6 pg (27.0-33.0); Mean Corpuscular Volume 84.3 fL (80.0-98.0); Mean Platelet Volume 11.9 fL (9.4-12.3); Red Blood Count 4.13 X10*6/uL (4.20-5.50); Red Cell Distribution Width 17.3 % (11.0-16.0); White Blood Count 4.9 X10*3/uL (4.8-10.8)
[2021-04-22 06:47] LABS: Platelet Count 96 X10*3/uL (160-400)
[2021-04-22 06:53] LABS: Anion Gap 12 (12-20); Blood Urea Nitrogen 17 mg/dL (9-16); Calcium 8.7 mg/dL (8.4-10.2); Carbon Dioxide 28 mmol/L (22-29); Chloride 109 mmol/L (96-108); Creatinine Clr Calc Pharmacy 111.2; Estimated Glomerular Filt Rate > 60; Glucose Random 149 mg/dL (60-115); Potassium 4.3 mmol/L (3.3-5.1); Sodium 145 mmol/L (135-145)
[2021-04-22] MEDS: Albuterol/Iprat 2.5/0.5MG 3 ML AMPUL.NEB INHALE ×4 (07:53→20:48)
--- NOTE | 2021-04-22 08:00 | P.PNIM_ITS ---
Subjective Subjective Date of Service: 04/22/21 Interval History: hypoxia Review of Systems still sob , cough Denies any new complaint of chest pain or abdominal pain or fever or chills or nausea or vomiting Denies any weakness or numbness. Physical Exam Verdana 4l Vital Signs: Verdana 4d Verdana 4d Vital Signs: Verdana 4d Verdana 4Bd Last Vital Signs Verdana 4d [employer] Machine Operator New 4d [employer] Machine Operator New 4d Temp 97.2 F 04/22/21 04:00 [employer] Machine Operator New 4d Pulse 58 04/22/21 07:54 [employer] Machine Operator New 4d Resp 20 04/22/21 07:54 BP 123/60 04/22/21 04:00 Pulse Ox 94 04/22/21 04:00 Oxygen Flow Rate 4 04/19/21 21:59 BMI result Body Mass Index 53.1 Appearance: Alert.? Oriented X3.? No acute distress.? Obese Eyes:? No pallor or icterus ENT: Pharynx normal. Oral Mucosa moist CVS: rrr , s1s2 heard.? Respiratory:?air entry improving, bilateral sllightly dimiahsed at bases. Abdomen: Soft and nontender.? Bowel sounds are present, no mass palpable, no CVA tenderness Skin: Skin warm and dry.? Normal skin color.? Normal skin turgor. Extremities: No lower extremity edema.? No calf tenderness Neuro: Oriented X 3.? Objective Data Active Medications Acetaminophen (Acetaminophen 325 Mg Tablet) 650 mg PO Q6H PRN PRN Reason: Pain, Mild (Pain Scale 1-3) Last Admin: 04/21/21 22:33 Dose: 650 mg Documented by: JESSICA Albuterol/Ipratropium (Albuterol/Iprat 2.5/0.5mg 3 Ml Ampul.Neb) 3 ml INHALE RQ4H PRN PRN Reason: Shortness of Breath/Wheezing Albuterol/Ipratropium (Albuterol/Iprat 2.5/0.5mg 3 Ml Ampul.Neb) 3 ml INHALE QID [facility] Last Admin: 04/22/21 07:53 Dose: 3 ml Documented by: MADHU Baricitinib (Baricitinib 2 Mg Tablet) 4 mg PO Q24H [facility] Stop: 05/04/21 14:01 Last Admin: 04/21/21 14:45 Dose: 4 mg Documented by: ANA LUISA Benzonatate (Benzonatate 100 Mg Capsule) 200 mg PO TID PRN PRN Reason: Cough Last Admin: 04/21/21 10:12 Dose: 200 mg Documented by: ANA LUISA Clonazepam (Clonazepam 0.5 Mg Tablet) 1.5 mg PO BEDTIME PRN PRN Reason: panic attack Last Admin: 04/22/21 00:36 Dose: 1.5 mg Documented by: JESSICA Dexamethasone Sodium Phosphate (Dexamethasone Sod Phosphate 4 Mg/Ml Vial) 6 mg IVPUSH DAILY [facility] Last Admin: 04/21/21 09:55 Dose: 6 mg Documented by: ANA LUISA Docusate Sodium (Docusate Sodium 100 Mg Capsule) 100 mg PO DAILY PRN PRN Reason: Constipation Enoxaparin Sodium (Enoxaparin Sodium 40 Mg/0.4 Ml Syringe) 40 mg SUBCUT Q24H [facility] Last Admin: 04/22/21 04:30 Dose: 40 mg Documented by: JESSICA Ergocalciferol (Ergocalciferol (Vitamin D2) 1,250 Mcg Capsule) 1,250 mcg PO SA [facility] Fluticasone Propionate (Fluticasone Propionate Nasal 16 Gm [place]) 1 spray NOSTRIL-B DAILY PRN PRN Reason: Allergy Symptoms Guaifenesin (Guaifenesin [place] 600 Mg Tab.Er.12h) 600 mg PO BID PRN PRN Reason: cough Last Admin: 04/22/21 01:49 Dose: 600 mg Documented by: JESSICA Hydroxyzine HCl (Hydroxyzine Hcl 50 Mg Tablet) 50 mg PO BEDTIME [facility] Last Admin: 04/21/21 22:34 Dose: 50 mg Documented by: JESSICA Hydroxyzine HCl (Hydroxyzine Hcl 50 Mg Tablet) 50 mg PO BID@1200,2100 PRN PRN Reason: Anxiety Azithromycin 500 mg/ Sodium (Chloride) 250 mls @ 125 mls/hr IV Q24H [facility] Last Infusion: 04/21/21 10:03 Dose: 0 mls/hr Documented by: ANA LUISA Omeprazole (Omeprazole 20 Mg Capsule.Dr) 20 mg PO DAILY [facility] Last Admin: 04/21/21 09:55 Dose: 20 mg Documented by: ANA LUISA Ondansetron HCl (Ondansetron Hcl 4 Mg/2 Ml Vial) 4 mg IVPUSH Q8H PRN PRN Reason: Nausea and Vomiting Sodium Chloride (0.9 % Sodium Chloride Flush 3 Ml Syringe) 3 ml IVFLUSH QSHIFT [facility] Last Admin: 04/22/21 00:35 Dose: 3 ml Documented by: JESSICA Trazodone HCl (Trazodone Hcl 100 Mg Tablet) 300 mg PO BEDTIME [facility] Last Admin: 04/21/21 21:00 Dose: 300 mg Documented by: JESSICA Labs CBC & Chem 7: 04/22/21 06:05 04/22/21 06:05 Labs: Laboratory Results - last 24 hr 04/21/21 04/21/21 04/22/21 06:42 09:39 06:05 MCV 84.3 MCH 26.6 L MCHC 31.6 RDW 17.3 H Plt Count 96 L MPV 11.9 Absolute Nucleated RBC 0.000 Nucleated RBC % (auto) 0.0 VBG pH 7.42 VBG pCO2 38 VBG pO2 52 VBG HCO3 25 VBG O2 Saturation 78.0 VBG Base Excess 1.1 Anion Gap Estim Creat Clear Calc Estimated GFR Random Glucose Calcium Total Bilirubin 0.3 Direct Bilirubin 0.2 AST 51 H ALT 31 Alkaline Phosphatase 82 Total Protein 6.7 Albumin 3.1 L 04/22/21 06:05 MCV MCH MCHC RDW Plt Count MPV Absolute Nucleated RBC Nucleated RBC % (auto) VBG pH VBG pCO2 VBG pO2 VBG HCO3 VBG O2 Saturation VBG Base Excess Anion Gap 12 Estim Creat Clear Calc 111.2 Estimated GFR > 60 Random Glucose 149 H Calcium 8.7 Total Bilirubin Direct Bilirubin AST ALT Alkaline Phosphatase Total Protein Albumin Microbiology Microbiology Results: Microbiology 04/19/21 23:16 Blood Culture - Preliminary Blood - Venous No growth after 48 hours. 04/19/21 23:15 Blood Culture - Preliminary Blood - Venous No growth after 48 hours. Assessment and Plan (1) Acute respiratory failure due to COVID-19: Status: Acute (2) COPD exacerbation: Status: Acute Plan 60-year-old female with past medical history of COPD presents the hospital with complaints of shortness of breath found to have COPD exacerbation as well as COVID-19 pneumonia 1.acute hypoxic respiratory failure- secondary to COVID-19 pneumonia as well as COPD exacerbation low procalcitonin levels, continue with dexamethasone 6 mg daily,bacitnib, DuoNeb treatment,oxygen demand improving reports vaccinated but does not remember the vaccine ct chest noted -seems covid chnages pulm eval noted-continue above amangement 2. acute COPD exacerbation - will treat with dexamethasone, DuoNeb treatments, add azithromycin - monitor respiratory status 3. anxiety and depression - continue home medications DVT prophylaxis: [employer] Stroke Does the patient have a stroke diagnosis?: No VTE Prior VTE?: No VTE Risk Level:: Medical - moderate - high VTE Device Contraindication: Treatment Not Indicated VTE Drug Contraindication: N/A - Med Ordered
[2021-04-22] MEDS: dexAMETHasone sod phosphate 4 MG/ML VIAL 6 MG IVPUSH (11:13)
[2021-04-22] MEDS: Omeprazole 20 MG CAPSULE.DR PO (11:15)
[2021-04-22] MEDS: Azithromycin 500 MG in 0.9 % Sodium Chloride 250 ML 125 MG IV (11:16)
[2021-04-22] MEDS: Loperamide HCl 2 MG CAPSULE PO (14:06)
--- NOTE | 2021-04-22 15:52 | MHC.CM.PN ---
Female 60 COPD Covid+ She is not ready to discharge per MD rounds. She continues on 7L O2 DP home with new [facility]. [facility] services will resume. Transportation will be provided by her [employer].
[2021-04-22] MEDS: Acetaminophen 325 MG TABLET 650 MG PO (17:19)
[2021-04-22] MEDS: traZODone HCL 100 MG TABLET 300 MG PO (21:12)
[2021-04-22] MEDS: hydrOXYzine HCL 50 MG TABLET PO (21:12)
[2021-04-23] VITALS (8 sets, daily range): BP systolic 115–164; BP diastolic 63–80; PULSE 51–89; RESP 18–24; TEMP 35.8–36.8; O2SAT 91–99
[2021-04-23] MEDS: Enoxaparin Sodium 40 MG/0.4 ML SYRINGE SUBCUT (05:25)
--- NOTE | 2021-04-23 08:09 | P.PNIM_ITS ---
Subjective Subjective Date of Service: 04/23/21 Interval History: hypoxia , covid Review of Systems Denies any new complaint of chest pain or abdominal pain or fever or chills or nausea or vomiting Denies any weakness or numbness. Physical Exam Verdana 4l Vital Signs: Verdana 4d Verdana 4d Vital Signs: Verdana 4d Verdana 4Bd Last Vital Signs Verdana 4d Machine Cementer And Folder New 4d Machine Cementer And Folder New 4d Temp 98 F 04/23/21 04:00 Machine Cementer And Folder New 4d Pulse 59 04/23/21 04:00 Machine Cementer And Folder New 4d Resp 19 04/23/21 04:00 BP 130/63 04/23/21 04:00 Pulse Ox 94 04/23/21 04:00 Oxygen Flow Rate 4 04/19/21 21:59 BMI result Body Mass Index 53.1 Appearance: Alert.? Oriented X3.? No acute distress.? Obese Eyes:? No pallor or icterus ENT: Pharynx normal. Oral Mucosa moist CVS: rrr , s1s2 heard.? Respiratory:?air entry improving, bilateral sllightly dimiahsed at bases. Abdomen: Soft and nontender.? Bowel sounds are present, no mass palpable, no CVA tenderness Skin: Skin warm and dry.? Normal skin color.? Normal skin turgor. Extremities: No lower extremity edema.? No calf tenderness Neuro: Oriented X 3.? Objective Data Active Medications Acetaminophen (Acetaminophen 325 Mg Tablet) 650 mg PO Q6H PRN PRN Reason: Pain, Mild (Pain Scale 1-3) Last Admin: 04/22/21 17:19 Dose: 650 mg Documented by: MARGARET Albuterol/Ipratropium (Albuterol/Iprat 2.5/0.5mg 3 Ml Ampul.Neb) 3 ml INHALE RQ4H PRN PRN Reason: Shortness of Breath/Wheezing Albuterol/Ipratropium (Albuterol/Iprat 2.5/0.5mg 3 Ml Ampul.Neb) 3 ml INHALE QID OZZIE Last Admin: 04/22/21 20:48 Dose: 3 ml Documented by: SUSAN Baricitinib (Baricitinib 2 Mg Tablet) 4 mg PO Q24H OZZIE Stop: 05/04/21 14:01 Last Admin: 04/22/21 14:06 Dose: 4 mg Documented by: MAL Benzonatate (Benzonatate 100 Mg Capsule) 200 mg PO TID PRN PRN Reason: Cough Last Admin: 04/21/21 10:12 Dose: 200 mg Documented by: ANA LUISA Clonazepam (Clonazepam 0.5 Mg Tablet) 1.5 mg PO BEDTIME PRN PRN Reason: panic attack Last Admin: 04/22/21 21:12 Dose: 1.5 mg Documented by: SARAH Dexamethasone Sodium Phosphate (Dexamethasone Sod Phosphate 4 Mg/Ml Vial) 6 mg IVPUSH DAILY [facility] Last Admin: 04/22/21 11:13 Dose: 6 mg Documented by: MAL Docusate Sodium (Docusate Sodium 100 Mg Capsule) 100 mg PO DAILY PRN PRN Reason: Constipation Enoxaparin Sodium (Enoxaparin Sodium 40 Mg/0.4 Ml Syringe) 40 mg SUBCUT Q24H [facility] Last Admin: 04/23/21 05:25 Dose: 40 mg Documented by: SARAH Ergocalciferol (Ergocalciferol (Vitamin D2) 1,250 Mcg Capsule) 1,250 mcg PO SA [facility] Fluticasone Propionate (Fluticasone Propionate Nasal 16 Gm [place]) 1 spray NOSTRIL-B DAILY PRN PRN Reason: Allergy Symptoms Guaifenesin (Guaifenesin La 600 Mg Tab.Er.12h) 600 mg PO BID PRN PRN Reason: cough Last Admin: 04/22/21 01:49 Dose: 600 mg Documented by: JESSICA Hydroxyzine HCl (Hydroxyzine Hcl 50 Mg Tablet) 50 mg PO BEDTIME [facility] Last Admin: 04/22/21 21:12 Dose: 50 mg Documented by: SARAH Hydroxyzine HCl (Hydroxyzine Hcl 50 Mg Tablet) 50 mg PO BID@1200,2100 PRN PRN Reason: Anxiety Azithromycin 500 mg/ Sodium (Chloride) 250 mls @ 125 mls/hr IV Q24H [facility] Last Infusion: 04/22/21 13:30 Dose: 0 mls/hr Documented by: MAL Omeprazole (Omeprazole 20 Mg Capsule.Dr) 20 mg PO DAILY [facility] Last Admin: 04/22/21 11:15 Dose: 20 mg Documented by: MAL Ondansetron HCl (Ondansetron Hcl 4 Mg/2 Ml Vial) 4 mg IVPUSH Q8H PRN PRN Reason: Nausea and Vomiting Sodium Chloride (0.9 % Sodium Chloride Flush 3 Ml Syringe) 3 ml IVFLUSH QSHIFT [facility] Last Admin: 04/22/21 21:12 Dose: 3 ml Documented by: ANTSHAHAB Trazodone HCl (Trazodone Hcl 100 Mg Tablet) 300 mg PO BEDTIME [facility] Last Admin: 04/22/21 21:12 Dose: 300 mg Documented by: SARAH Labs CBC & Chem 7: 04/22/21 06:05 04/22/21 06:05 Assessment and Plan (1) Acute respiratory failure due to COVID-19: Status: Acute (2) Acute on chronic respiratory failure with hypoxia: Status: Acute Plan 60-year-old female with past medical history of COPD presents the hospital with complaints of shortness of breath found to have COPD exacerbation as well as COVID-19 pneumonia 1.acute hypoxic respiratory failure- secondary to COVID-19 pneumonia as well as COPD exacerbation low procalcitonin levels, continue with dexamethasone 6 mg daily,bacitnibday3 , DuoNeb treatment,oxygen demand improving reports vaccinated but does not remember the vaccine ct chest noted -seems covid chnages pulm eval noted-continue above amangement 2. acute COPD exacerbation - will treat with dexamethasone, DuoNeb treatments,? add azithromycin - monitor respiratory status 3. anxiety and depression - continue home medications DVT prophylaxis: Lovenox Quality Stroke Does the patient have a stroke diagnosis?: No VTE Prior VTE?: No VTE Risk Level:: Medical - moderate - high VTE Device Contraindication: Treatment Not Indicated VTE Drug Contraindication: N/A - Med Ordered
[2021-04-23] MEDS: Azithromycin 500 MG in 0.9 % Sodium Chloride 250 ML 125 MG IV (10:12)
[2021-04-23] MEDS: 0.9 % Sodium Chloride Flush 3 ML SYRINGE IVFLUSH ×3 (10:13→20:04)
[2021-04-23] MEDS: dexAMETHasone sod phosphate 4 MG/ML VIAL 6 MG IVPUSH (10:13)
[2021-04-23] MEDS: Omeprazole 20 MG CAPSULE.DR PO (10:13)
[2021-04-23] MEDS: Fluticasone Propionate Nasal 16 GM SPRAY 1 SPRAY NOSTRIL-B (10:14)
[2021-04-23] MEDS: Acetaminophen 325 MG TABLET 650 MG PO ×2 (12:33→20:07)
[2021-04-23] MEDS: Benzonatate 100 MG CAPSULE 200 MG PO (12:34)
[2021-04-23] MEDS: Albuterol/Iprat 2.5/0.5MG 3 ML AMPUL.NEB INHALE ×2 (15:59→19:51)
[2021-04-23] MEDS: clonazePAM 0.5 MG TABLET 1.5 MG PO (20:03)
[2021-04-23] MEDS: traZODone HCL 100 MG TABLET 300 MG PO (20:04)
[2021-04-23] MEDS: hydrOXYzine HCL 50 MG TABLET PO (20:04)
[2021-04-24] VITALS (9 sets, daily range): BP systolic 126–144; BP diastolic 64–81; PULSE 53–89; RESP 18–24; TEMP 36.3–37.1; O2SAT 72–98
[2021-04-24] MEDS: Enoxaparin Sodium 40 MG/0.4 ML SYRINGE SUBCUT (04:43)
[2021-04-24] MEDS: Albuterol/Iprat 2.5/0.5MG 3 ML AMPUL.NEB INHALE ×4 (07:46→19:10)
--- NOTE | 2021-04-24 08:37 | P.PNIM_ITS ---
Subjective Subjective Date of Service: 04/24/21 Interval History: hypoxia , covid Review of Systems Denies any new complaint of chest pain or abdominal pain or fever or chills or nausea or vomiting Denies any weakness or numbness. Physical Exam Verdana 4l Vital Signs: Verdana 4d Verdana 4d Vital Signs: Verdana 4d Verdana 4Bd Last Vital Signs Verdana 4d Political Reporter New 4d Political Reporter New 4d Temp 97.4 F 04/24/21 07:55 Political Reporter New 4d Pulse 53 04/24/21 07:55 Political Reporter New 4d Resp 24 H 04/24/21 07:55 BP 141/80 H 04/24/21 07:55 Pulse Ox 94 04/24/21 07:55 Oxygen Flow Rate 4 04/19/21 21:59 BMI result Body Mass Index 53.1 Appearance: Alert.? Oriented X3.? No acute distress.? Obese Eyes:? No pallor or icterus ENT: Pharynx normal. Oral Mucosa moist CVS: rrr , s1s2 heard.? Respiratory:?air entry improving, bilateral sllightly dimiahsed at bases. Abdomen: Soft and nontender.? Bowel sounds are present, no mass palpable, no CVA tenderness Skin: Skin warm and dry.? Normal skin color.? Normal skin turgor. Extremities: No lower extremity edema.? No calf tenderness Neuro: Oriented X 3.? Objective Data Active Medications Acetaminophen (Acetaminophen 325 Mg Tablet) 650 mg PO Q6H PRN PRN Reason: Pain, Mild (Pain Scale 1-3) Last Admin: 04/23/21 20:07 Dose: 650 mg Documented by: SARAH Albuterol/Ipratropium (Albuterol/Iprat 2.5/0.5mg 3 Ml Ampul.Neb) 3 ml INHALE RQ4H PRN PRN Reason: Shortness of Breath/Wheezing Albuterol/Ipratropium (Albuterol/Iprat 2.5/0.5mg 3 Ml Ampul.Neb) 3 ml INHALE RQID OZZIE Last Admin: 04/24/21 07:46 Dose: 3 ml Documented by: BABAK Baricitinib (Baricitinib 2 Mg Tablet) 4 mg PO Q24H OZZIE Stop: 05/04/21 14:01 Last Admin: 04/23/21 12:34 Dose: 4 mg Documented by: HEATHER Benzonatate (Benzonatate 100 Mg Capsule) 200 mg PO TID PRN PRN Reason: Cough Last Admin: 04/23/21 12:34 Dose: 200 mg Documented by: HEATHER Clonazepam (Clonazepam 0.5 Mg Tablet) 1.5 mg PO BEDTIME PRN PRN Reason: panic attack Last Admin: 04/23/21 20:03 Dose: 1.5 mg Documented by: SARAH Dexamethasone Sodium Phosphate (Dexamethasone Sod Phosphate 4 Mg/Ml Vial) 6 mg IVPUSH DAILY [facility] Last Admin: 04/23/21 10:13 Dose: 6 mg Documented by: HEATHER Docusate Sodium (Docusate Sodium 100 Mg Capsule) 100 mg PO DAILY PRN PRN Reason: Constipation Enoxaparin Sodium (Enoxaparin Sodium 40 Mg/0.4 Ml Syringe) 40 mg SUBCUT Q24H [facility] Last Admin: 04/24/21 04:43 Dose: 40 mg Documented by: SARAH Ergocalciferol (Ergocalciferol (Vitamin D2) 1,250 Mcg Capsule) 1,250 mcg PO SA [facility] Last Admin: 04/23/21 10:14 Dose: Not Given Documented by: HEATHER Non-Admin Reason: Patient Refused Fluticasone Propionate (Fluticasone Propionate Nasal 16 Gm [place]) 1 spray NOSTRIL-B DAILY PRN PRN Reason: Allergy Symptoms Last Admin: 04/23/21 10:14 Dose: 1 spray Documented by: HEATHRE Guaifenesin (Guaifenesin La 600 Mg Tab.Er.12h) 600 mg PO BID PRN PRN Reason: cough Last Admin: 04/22/21 01:49 Dose: 600 mg Documented by: JESSICA Guaifenesin/Codeine Phosphate (Guaifen/Codeine Sf 200/20/10ml 10 Ml Liquid) 5 ml PO Q6H PRN PRN Reason: Cough Hydroxyzine HCl (Hydroxyzine Hcl 50 Mg Tablet) 50 mg PO BEDTIME [facility] Last Admin: 04/23/21 20:04 Dose: 50 mg Documented by: SARAH Hydroxyzine HCl (Hydroxyzine Hcl 50 Mg Tablet) 50 mg PO BID@1200,2100 PRN PRN Reason: Anxiety Azithromycin 500 mg/ Sodium (Chloride) 250 mls @ 125 mls/hr IV Q24H [facility] Last Infusion: 04/23/21 13:54 Dose: 0 mls/hr Documented by: HEATHER Omeprazole (Omeprazole 20 Mg Capsule.Dr) 20 mg PO DAILY [facility] Last Admin: 04/23/21 10:13 Dose: 20 mg Documented by: HEATHER Ondansetron HCl (Ondansetron Hcl 4 Mg/2 Ml Vial) 4 mg IVPUSH Q8H PRN PRN Reason: Nausea and Vomiting Sodium Chloride (0.9 % Sodium Chloride Flush 3 Ml Syringe) 3 ml IVFLUSH QSHIFT [facility] Last Admin: 04/23/21 20:04 Dose: 3 ml Documented by: ANTSHAHAB Trazodone HCl (Trazodone Hcl 100 Mg Tablet) 300 mg PO BEDTIME [facility] Last Admin: 04/23/21 20:04 Dose: 300 mg Documented by: SARAH Labs CBC & Chem 7: 04/22/21 06:05 04/22/21 06:05 Assessment and Plan (1) Pneumonia: Status: Acute (2) COVID-19: Status: Acute Plan 60-year-old female with past medical history of COPD presents the hospital with complaints of shortness of breath found to have COPD exacerbation as well as COVID-19 pneumonia 1.acute hypoxic respiratory failure- secondary to COVID-19 pneumonia as well as COPD exacerbation low procalcitonin levels, still sob seems similar to yestaerday , cough a lot diffuclut to talk when cugh/sob continue with dexamethasone 6 mg daily,bacitnibday3 , DuoNeb treatment,oxygen demand improving reports vaccinated but does not remember the vaccine ct chest noted -seems covid chnages pulm eval noted-continue above amangement 2. acute COPD exacerbation - will treat with dexamethasone, DuoNeb treatments,? add azithromycin - monitor respiratory status 3. anxiety and depression - continue home medications DVT prophylaxis: Lovenox Quality Stroke Does the patient have a stroke diagnosis?: No VTE Prior VTE?: No VTE Risk Level:: Medical - moderate - high VTE Device Contraindication: Treatment Not Indicated VTE Drug Contraindication: N/A - Med Ordered
[2021-04-24] MEDS: Omeprazole 20 MG CAPSULE.DR PO (10:19)
[2021-04-24] MEDS: 0.9 % Sodium Chloride Flush 3 ML SYRINGE IVFLUSH ×2 (10:19→13:10)
[2021-04-24] MEDS: dexAMETHasone sod phosphate 4 MG/ML VIAL 6 MG IVPUSH (10:19)
[2021-04-24] MEDS: Azithromycin 500 MG in 0.9 % Sodium Chloride 250 ML 125 MG IV (10:19)
[2021-04-24 12:11] LABS: CDiff Gene PCR NEGATIVE (Negative)
[2021-04-24] MEDS: Nystatin Oral Susp 500,000 UNIT/5 ML ORAL.SUSP 500000 UNIT PO ×3 (12:58→20:13)
[2021-04-24] MEDS: Mag&Al/Sim/Diphenhyd/Lidocaine 10 ML ORAL.SUSP PO (15:45)
--- NOTE | 2021-04-24 18:22 | PC.NURSE ---
PATIENT CONTINUES TO HAVE FREQUENT SMALL, SOFT/PASTY BMS THROUGHOUT THE SHIFT. SAMPLE SENT TO LAB ORDERED. MD FELIX.
[2021-04-24] MEDS: hydrOXYzine HCL 50 MG TABLET PO (20:13)
[2021-04-24] MEDS: clonazePAM 0.5 MG TABLET 1.5 MG PO (20:13)
[2021-04-24] MEDS: traZODone HCL 100 MG TABLET 300 MG PO (20:13)
[2021-04-25] VITALS (8 sets, daily range): BP systolic 132–166; BP diastolic 66–86; PULSE 50–78; RESP 16–19; TEMP 36.2–37.2; O2SAT 92–95
[2021-04-25] MEDS: Enoxaparin Sodium 40 MG/0.4 ML SYRINGE SUBCUT (04:02)
--- NOTE | 2021-04-25 07:59 | P.PNIM_ITS ---
Subjective Subjective Date of Service: 04/25/21 Interval History: acute hypoxemic resp Review of Systems patient continue having sob and aggressive coughing spells Denies any abdominal pain or fever or chills or nausea or vomiting. Physical Exam Verdana 4l Vital Signs: Verdana 4d Verdana 4d Vital Signs: Verdana 4d Verdana 4Bd Last Vital Signs Verdana 4d Media Librarian New 4d Media Librarian New 4d Temp 97.2 F 04/25/21 07:44 Media Librarian New 4d Pulse 55 04/25/21 07:44 Media Librarian New 4d Resp 18 04/25/21 07:44 BP 149/71 H 04/25/21 07:44 Pulse Ox 94 04/25/21 07:44 Oxygen Flow Rate 4 04/19/21 21:59 BMI result Body Mass Index 53.1 Appearance: Alert.? Oriented X3.? No acute distress.? Obese Eyes:? No pallor or icterus ENT: Pharynx normal. Oral Mucosa moist CVS: rrr , s1s2 heard.? Respiratory:?air entry similar to yesterday Abdomen: Soft and nontender.? Bowel sounds are present, no mass palpable. Skin: Skin warm and dry.? Normal skin color.? Normal skin turgor. Extremities: No lower extremity edema.? No calf tenderness Neuro: Oriented X 3.? Objective Data Active Medications Acetaminophen (Acetaminophen 325 Mg Tablet) 650 mg PO Q6H PRN PRN Reason: Pain, Mild (Pain Scale 1-3) Last Admin: 04/23/21 20:07 Dose: 650 mg Documented by: SARAH Albuterol/Ipratropium (Albuterol/Iprat 2.5/0.5mg 3 Ml Ampul.Neb) 3 ml INHALE RQ4H PRN PRN Reason: Shortness of Breath/Wheezing Albuterol/Ipratropium (Albuterol/Iprat 2.5/0.5mg 3 Ml Ampul.Neb) 3 ml INHALE RQID OZZIE Last Admin: 04/25/21 07:38 Dose: Not Given Documented by: LITZY Non-Admin Reason: Patient Refused Baricitinib (Baricitinib 2 Mg Tablet) 4 mg PO Q24H OZZIE Stop: 05/04/21 08:01 Benzonatate (Benzonatate 100 Mg Capsule) 200 mg PO TID PRN PRN Reason: Cough Last Admin: 04/23/21 12:34 Dose: 200 mg Documented by: HEATHER Dexamethasone Sodium Phosphate (Dexamethasone Sod Phosphate 4 Mg/Ml Vial) 6 mg IVPUSH DAILY [facility] Last Admin: 04/24/21 10:19 Dose: 6 mg Documented by: HOMER Docusate Sodium (Docusate Sodium 100 Mg Capsule) 100 mg PO DAILY PRN PRN Reason: Constipation Enoxaparin Sodium (Enoxaparin Sodium 40 Mg/0.4 Ml Syringe) 40 mg SUBCUT Q24H [facility] Last Admin: 04/25/21 04:02 Dose: 40 mg Documented by: MIGUEL Ergocalciferol (Ergocalciferol (Vitamin D2) 1,250 Mcg Capsule) 1,250 mcg PO SA [facility] Last Admin: 04/23/21 10:14 Dose: Not Given Documented by: HEATHER Non-Admin Reason: Patient Refused Fluticasone Propionate (Fluticasone Propionate Nasal 16 Gm [place]) 1 spray NOSTRIL-B DAILY PRN PRN Reason: Allergy Symptoms Last Admin: 04/23/21 10:14 Dose: 1 spray Documented by: HEATHER Guaifenesin (Guaifenesin La 600 Mg Tab.Er.12h) 600 mg PO BID PRN PRN Reason: cough Last Admin: 04/22/21 01:49 Dose: 600 mg Documented by: JESSICA Guaifenesin/Codeine Phosphate (Guaifen/Codeine Sf 200/20/10ml 10 Ml Liquid) 10 ml PO Q6H PRN PRN Reason: Cough Hydroxyzine HCl (Hydroxyzine Hcl 50 Mg Tablet) 50 mg PO BEDTIME [facility] Last Admin: 04/24/21 20:13 Dose: 50 mg Documented by: MIGUEL Hydroxyzine HCl (Hydroxyzine Hcl 50 Mg Tablet) 50 mg PO BID@1200,2100 PRN PRN Reason: Anxiety Azithromycin 500 mg/ Sodium (Chloride) 250 mls @ 125 mls/hr IV Q24H [facility] Last Infusion: 04/24/21 12:50 Dose: 0 mls/hr Documented by: HOMER Lidocaine/Diphenhydr/Alum/Mg/Simeth (Mag&Al/Sim/Diphenhyd/Lidocaine 10 Ml Oral.Susp) 10 ml PO Q4H PRN; Protocol PRN Reason: throat pain Last Admin: 04/24/21 15:45 Dose: 10 ml Documented by: HOMER Nystatin (Nystatin Oral Susp 500,000 Unit/5 Ml Oral.Susp) 500,000 unit PO QID [facility]; Protocol Last Admin: 04/24/21 20:13 Dose: 500,000 unit Documented by: MIGUEL Omeprazole (Omeprazole 20 Mg Capsule.Dr) 20 mg PO DAILY [facility] Last Admin: 04/24/21 10:19 Dose: 20 mg Documented by: HOMER Ondansetron HCl (Ondansetron Hcl 4 Mg/2 Ml Vial) 4 mg IVPUSH Q8H PRN PRN Reason: Nausea and Vomiting Sodium Chloride (0.9 % Sodium Chloride Flush 3 Ml Syringe) 3 ml IVFLUSH QSHIFT [facility] Last Admin: 04/25/21 00:10 Dose: Not Given Documented by: MIGUEL Non-Admin Reason: Previously Administered Trazodone HCl (Trazodone Hcl 100 Mg Tablet) 300 mg PO BEDTIME [facility] Last Admin: 04/24/21 20:13 Dose: 300 mg Documented by: MIGUEL Labs CBC & Chem 7: 04/22/21 06:05 04/25/21 08:13 Labs: Laboratory Results - last 24 hr 04/24/21 04/24/21 10:34 10:34 C. difficile Tox B Gene NEGATIVE S. pyogenes GrpA AKANKSHA Cancelled Microbiology Microbiology Results: Microbiology 04/24/21 10:34 Throat Culture - Preliminary Throat No Group A Beta-hemolytic Streptococci isolated to date. 04/19/21 23:16 Blood Culture - Final Blood - Venous No growth after 5 days. 04/19/21 23:15 Blood Culture - Final Blood - Venous No growth after 5 days. Assessment and Plan (1) Pneumonia: Status: Acute (2) COVID-19: Status: Acute Plan 60-year-old female with past medical history of COPD presents the hospital with complaints of shortness of breath found to have COPD exacerbation as well as COVID-19 pneumonia 1.acute hypoxic respiratory failure- secondary to COVID-19 pneumonia as well as COPD exacerbation low procalcitonin levels, still sob seems similar to yestaerday , cough spels continue with dexamethasone 6 mg daily,bacitnibday5 , DuoNeb treatment,oxygen demand improving, added luis reports vaccinated but does not remember the vaccine ct chest noted -seems covid chnages pulm eval noted-continue above amangement 2. acute COPD exacerbation - will treat with dexamethasone, DuoNeb treatments,? add azithromycin - monitor respiratory status 3. anxiety and depression - continue home medications DVT prophylaxis: RateSetter Stroke Does the patient have a stroke diagnosis?: No VTE Prior VTE?: No VTE Risk Level:: Medical - moderate - high VTE Device Contraindication: Treatment Not Indicated VTE Drug Contraindication: N/A - Med Ordered
[2021-04-25] MEDS: Azithromycin 500 MG in 0.9 % Sodium Chloride 250 ML 125 MG IV (09:00)
[2021-04-25] MEDS: 0.9 % Sodium Chloride Flush 3 ML SYRINGE IVFLUSH ×2 (09:03→17:59)
[2021-04-25] MEDS: dexAMETHasone sod phosphate 4 MG/ML VIAL 6 MG IVPUSH (09:03)
[2021-04-25 09:22] LABS: Anion Gap 10 (12-20); Blood Urea Nitrogen 19 mg/dL (9-16); Calcium 9.1 mg/dL (8.4-10.2); Carbon Dioxide 32 mmol/L (22-29); Chloride 106 mmol/L (96-108); Creatinine Clr Calc Pharmacy 93.1; Estimated Glomerular Filt Rate > 60; Glucose Random 90 mg/dL (60-115); Potassium 4.2 mmol/L (3.3-5.1); Sodium 144 mmol/L (135-145)
[2021-04-25] MEDS: Albuterol/Iprat 2.5/0.5MG 3 ML AMPUL.NEB INHALE ×2 (10:33→20:15)
[2021-04-25] MEDS: Omeprazole 20 MG CAPSULE.DR PO (12:32)
[2021-04-25] MEDS: Benzonatate 100 MG CAPSULE 200 MG PO (12:32)
[2021-04-25] MEDS: Nystatin Oral Susp 500,000 UNIT/5 ML ORAL.SUSP 500000 UNIT PO ×3 (14:43→21:20)
--- NOTE | 2021-04-25 16:00 | MHC.CM.PN ---
Female 60 DX Covid+ COPD exacerbation. DC anticipated 2-3 days per MD rounds. DP Home with new [facility] and resumption of DOCUMENTATION ENGINEER services. Her DOCUMENTATION ENGINEER will provide transportation.
[2021-04-25] MEDS: traZODone HCL 100 MG TABLET 300 MG PO (21:20)
[2021-04-25] MEDS: hydrOXYzine HCL 50 MG TABLET PO (21:20)
[2021-04-26] MEDS: Enoxaparin Sodium 40 MG/0.4 ML SYRINGE SUBCUT (03:45)
[2021-04-26 04:00] VITALS: BP 142/85; PULSE 72; RESP 16; TEMP 36.2; O2SAT 95
[2021-04-26 07:06] LABS: Anion Gap 8 (12-20); Blood Urea Nitrogen 18 mg/dL (9-16); Calcium 8.9 mg/dL (8.4-10.2); Carbon Dioxide 31 mmol/L (22-29); Chloride 108 mmol/L (96-108); Creatinine Clr Calc Pharmacy 101.3; Estimated Glomerular Filt Rate > 60; Glucose Random 126 mg/dL (60-115); Potassium 4.4 mmol/L (3.3-5.1); Sodium 143 mmol/L (135-145)
[2021-04-26 07:35] LABS: Hematocrit 37.2 % (37.0-47.0); Hemoglobin 11.7 g/dl (12.0-16.0); Mean Corpuscular HGB Conc 31.5 g/dl (31.0-35.0); Mean Corpuscular Hemoglobin 26.7 pg (27.0-33.0); Mean Corpuscular Volume 84.9 fL (80.0-98.0); Mean Platelet Volume 12.3 fL (9.4-12.3); Platelet Count 119 X10*3/uL (160-400); Red Blood Count 4.38 X10*6/uL (4.20-5.50); Red Cell Distribution Width 16.9 % (11.0-16.0); White Blood Count 6.6 X10*3/uL (4.8-10.8)
[2021-04-26 07:44] VITALS: BP 161/69; PULSE 60; RESP 20; TEMP 36.4; O2SAT 94
[2021-04-26] MEDS: dexAMETHasone sod phosphate 4 MG/ML VIAL 6 MG IVPUSH (08:41)
[2021-04-26] MEDS: Nystatin Oral Susp 500,000 UNIT/5 ML ORAL.SUSP 500000 UNIT PO ×2 (08:41→13:02)
[2021-04-26] MEDS: Benzonatate 100 MG CAPSULE 200 MG PO ×2 (08:41→14:40)
[2021-04-26] MEDS: 0.9 % Sodium Chloride Flush 3 ML SYRINGE IVFLUSH (08:42)
[2021-04-26] MEDS: Omeprazole 20 MG CAPSULE.DR PO (08:42)
[2021-04-26 11:17] VITALS: BP 140/78; PULSE 60; RESP 20; TEMP 36.4; O2SAT 94
[2021-04-26] MEDS: Albuterol/Iprat 2.5/0.5MG 3 ML AMPUL.NEB INHALE (11:32)
[2021-04-26 11:34] VITALS: PULSE 63; RESP 18; O2SAT 94
--- NOTE | 2021-04-26 13:15 | MHC.CM.PN ---
Patient is discharged to home with new NA today. She has arranged for transportation home.
--- NOTE | 2021-04-26 13:40 | W.MHC.F2F ---
Service Date Service Date: 04/26/21 Encounter Date of encounter: 04/26/21 Reasons for Services Signs and symptoms assessed: Covid, weakness Reason for physical therapy: home safety and mobility and therapeutic exercises Homebound: Leaving the home is medically contraindicated at this time without the asist of a device and/or another person due th the listed conditions above and below. Reason homebound: unsteady gait / fall risk Certification: Based on the above findings, I certify that this patient is confined to the home and needs intermittent chcf care, physical therapy and/or speech therapy, or continues to need occupational therapy. The patient is under my care, and I have initiated the establishment of the plan of care. The patient will be followed by a physician who will periodically review the plan of care.
--- NOTE | 2021-04-26 14:09 | P.DS_ITS ---
DS: Providers Provider Date of Service: 04/26/21 Date of admission: 04/20/21 03:27 Primary care physician: Bety Trujillo MD Consults: 04/20/21 11:11 Consult to Pulmonology Routine Consulting Provider: [facility] Reason for consultation: acute hypoxemic respiratory failure sec to copd Has provider been notified: No DS: Diagnosis Discharge Diagnosis (1) COVID-19: Status: Acute (2) Acute respiratory failure due to COVID-19: Status: Acute (3) COPD exacerbation: Status: Acute DS: Summary Hospital Course Hospital Course: Admission note HPI This is a 61-year-old female past medical history of COPD and as well as anxiety presents to the hospital with complaints of shortness of breath.? Patient reports that her symptoms started about 2 weeks ago, have been worsening, she has a cough, sputum production, no lower extremity edema orthopnea or PND.? Reports fever at home, some chills.? She is also complaining of chest as well as abdominal pain mostly with coughing.denies any palpitations.? No nausea or vomiting, no diarrhea or constipation, no urinary symptoms and no lower extremity edema. On arrival to the ED patient hemodynamically stable with no significant abnormal vitals except for a respiratory rate of 24, found to be 89% on room air.? Patient does not use any oxygen at home.? Currently on 4 L satting 93%. Labs are significant for WBC count of 3.5, hemoglobin of 10.9, hematocrit 34.1, potassium of 3.2 which was repleted, AST of 72, ALT of 33, COVID-19 positive.? Patient reports that she is vaccinated x2 with no booster.? She does not Remember the vaccine she received. Chest x-ray shows bronchial wall thickening with patchy bilateral airspace opacities Hospital course The patient was admitted to the hospital acute hypoxic respiratory failure secondary to COPD exacerbation from COVID-19 infection. Treated with IV dexamethasone, oxygen supplement and bronchodilators with good response over the course of hospital stay as she was weaned down on the oxygen supplement to room air and was able to ambulate on that. To continue 3 more days of dexamethasone Time Spent with Patient Time attestation: Total time spent providing and/or coordinating discharge services: Discharge coordination time: Greater than 30 minutes Quality: Stroke Does the patient have a stroke diagnosis?: No Physical Exam Verdana 4l Vital Signs: Verdana 4d Verdana 4d Vital Signs: Verdana 4d Verdana 4Bd Last Vital Signs Verdana 4d Mammography Supervisor New 4d Mammography Supervisor New 4d Temp 97.5 F 04/26/21 11:17 Mammography Supervisor New 4d Pulse 63 04/26/21 11:34 Mammography Supervisor New 4d Resp 18 04/26/21 11:34 BP 140/78 H 04/26/21 11:17 Pulse Ox 94 04/26/21 11:17 Oxygen Flow Rate 4 04/19/21 21:59 BMI result Body Mass Index 53.1 Const: Other: Constitutional : Alert, oriented, not in distress Neck : Normal inspection, Supple Cardiovascular : RRR, S1 S2, no lower extremity edema Respiratory : Good bilateral air entry, no crackles, wheezes or rhonchi Gastrointestinal: soft, lax, Normal bowel sounds, Non tender Skin : Warm, Dry Neurological : Alert & oriented x3, No focal deficit DS: Data Data Completed and Pending Labs on day of discharge: Laboratory Results - last 24 hr 04/26/21 04/26/21 06:17 06:17 WBC 6.6 RBC 4.38 Hgb 11.7 L Hct 37.2 MCV 84.9 MCH 26.7 L MCHC 31.5 RDW 16.9 H Plt Count 119 L MPV 12.3 Absolute Nucleated RBC 0.000 Nucleated RBC % (auto) 0.0 Sodium 143 Potassium 4.4 Chloride 108 Carbon Dioxide 31 H Anion Gap 8 L BUN 18 H Creatinine 0.79 Estim Creat Clear Calc 101.3 Estimated GFR > 60 Random Glucose 126 H Calcium 8.9 Discharge Plan Discharge Patient Disposition: Home Health Service Discharge Diagnosis: COVID-19 infection COPD exacerbation Referrals: [facility] [Outside] - 1 Week Bety Trujillo MD [Primary Care Provider] - 1 Week Discharge Medications: New nystatin 100,000 unit/mL Suspension 500,000 unit PO QID 7 Days Qty: 140 0RF Protocol: Apply to: Apply to: swish and swallow dexamethasone 6 mg tablet 6 mg PO DAILY Qty: 3 0RF Continued trazodone 100 mg tablet 300 mg PO BEDTIME 0RF albuterol sulfate 2.5 mg /3 mL (0.083 %) solution for nebulization 2.5 mg inhalation Q4H PRN (Reason: SOB) 0RF clonazepam 1 mg tablet 1.5 mg PO BEDTIME 0RF albuterol sulfate 90 mcg/actuation HFA aerosol inhaler 2 puff inhalation Q4H PRN (Reason: Wheezing) 0RF cholecalciferol (vitamin D3) 1,250 mcg (50,000 unit) capsule 1,250 mcg PO SA 0RF Rx Instructions: Only on Saturdays ibuprofen 800 mg tablet 1 tab PO BID PRN (Reason: Pain) 0RF hydroxyzine HCl 50 mg tablet 1 tab PO BID@1200,2100 PRN (Reason: Anxiety) 0RF omeprazole 20 mg capsule,delayed release(DR/EC) 1 cap PO DAILY 0RF fluticasone propionate 50 mcg/actuation spray,suspension 1 spray intranasal DAILY PRN (Reason: Allergy Symptoms) 0RF Discharge Orders: Discharge Order (Routine); Ordered 04/26/21 Ordered By: Lee Arellano Diet: advance to usual diet Activity on Discharge: As tolerated Stand Alone Forms: Patient Portal Discharge page Care Plan Goals: Read below Health Concerns: Read below Plan of Treatment: Read below Assessment: You were admitted to the hospital for treatment of COVID-19 infection and COPD exacerbation. Responded well to steroids and bronchodilators. Continue dexamethasone as prescribed Use nystatin for oral thrush
== END 2021-04-26 16:30 | disposition home health service (06) | DRG 137 ==
LOC: HO.ED 04-20 00:33 → HO.EDOVER 04-20 03:37 → HO.IMC 04-20 11:26
PROVIDERS: Internal Medicine; Admitting Provider Internal Medicine; Emergency Provider Internal Medicine; PCP Internal Medicine; Visit Provider Student in an Organized Health Care Education/Training Program
DX: U07.1 COVID-19 (principal); J96.01 Acute respiratory failure with hypoxia; J12.82 Pneumonia due to coronavirus disease 2019; J44.0 Chronic obstructive pulmonary disease with (acute) lower respiratory infection; J44.1 Chronic obstructive pulmonary disease with (acute) exacerbation; F41.9 Anxiety disorder, unspecified; F32.A Depression, unspecified; E66.01 Morbid (severe) obesity due to excess calories; Z86.14 Personal history of Methicillin resistant Staphylococcus aureus infection; Z68.43 Body mass index [BMI] 50.0-59.9, adult; Z87.891 Personal history of nicotine dependence; Z79.1 Long term (current) use of non-steroidal anti-inflammatories (NSAID); Z79.51 Long term (current) use of inhaled steroids; Z79.899 Other long term (current) drug therapy
CPT/HCPCS: 36415; 71045; 71250; 80048; 80053; 80076; 82803; 83605; 84145; 85025; 85027; 87040; 87071; 87493; 87635; 93005; 94660; 96365; 96375; 99284; 99285; J0456; J0696; J1100; J1650; J1885

== ENCOUNTER 2021-08-01 11:04 | Emergency (ER) | payer MEDICAID, SELFPAY ==
--- NOTE | ~2021-08-01 | CT_ITS ---
EXAMINATION: CT ABDOMEN AND PELVIS WITHOUT CONTRAST CLINICAL INFORMATION: Wound involving the buttock. Evaluate for abscess. COMPARISON: CT of the abdomen and pelvis done on 05/31/2008. TECHNIQUE: Multidetector volumetric imaging was performed from the superior aspect of the liver through the pubic symphysis. Sagittal and coronal reformatted images were obtained on the technologist's workstation. This CT examination was performed using dose optimization techniques as appropriate, variously including the following: *Automated exposure control *Adjustment of mA and/or kV according to patient size (this includes techniques or standardized protocols for targeted exams where dose is matched to indication/reason for exam; i.e. extremities or head) *Use of iterative reconstruction technique DLP: 1356 mGy-cm FINDINGS: LUNG BASES: The visualized lung bases are unremarkable. LIVER, GALLBLADDER, AND BILIARY TREE: Subtle surface nodularity is present within the liver, may represent diffuse liver disease, new since prior study. The liver measures 20.4 cm at its maximum craniocaudal dimension. No CT evidence of any superimposed focal liver lesion on this nonenhanced study. The gallbladder is surgically absent. No evidence of any intrahepatic or extrahepatic biliary ductal dilatation. PANCREAS: Unremarkable. SPLEEN: Unremarkable. ADRENAL GLANDS: Unremarkable. KIDNEYS AND URETERS: The kidneys are normal in size, shape, and attenuation. No hydronephrosis, or hydroureter. Multiple nonobstructing radiopaque sub-5 mm bilateral renal calculi are present, appears similar to prior study. Previously documented unilocular cyst at the inferior anterior cortex is no longer reproduced. A smaller residual hypodensity associated with eccentric calcification is noted, likely represent involuting cyst with superimposed calcification. No perinephric stranding. BLADDER: Unremarkable. GASTROINTESTINAL TRACT: The small and large bowel are unremarkable. The appendix is unremarkable. ABDOMINAL WALL: No significant hernia is appreciated. LYMPH NODES: Normal. VASCULAR: Mild diffuse atherosclerotic disease of the aorta and is branches. PELVIC VISCERA: There is no pelvic mass present. No evidence of any free fluid and/or free air. OSSEOUS STRUCTURES: Postsurgical changes of intervertebral disc fusion is noted at L5-S1 and L4-5. Moderate diffuse osteopenia. ADDITIONAL FINDINGS: There is no evidence of any fluid collection and/or mass identified in the region of the buttocks. Nonspecific soft tissue stranding is noted overlying the posterior lower part of the back at the level of L3 vertebral body, appears similar to prior study. CT/CT abdomen pelvis wo con IMPRESSION: 1. No CT evidence of any abnormal mass or fluid collection identified in the region of the patella. 2. Hepatomegaly and surface nodularity of the liver, new since prior study, may represent diffuse liver disease. 3. Multiple bilateral sub-5 mm nonobstructing radiopaque renal calculi, appears similar to prior study dated 2008. 4. Postsurgical changes of lumbar spine fusion showing intact hardware and satisfactory alignment. Fleischner guidelines were followed.
[2021-08-01 11:54] VITALS: BP 148/77; PULSE 101; RESP 20; TEMP 36.9; O2SAT 94; BMI 53.1
[2021-08-01 14:42] LABS: MANUAL DIFF FLAG NO
[2021-08-01 14:45] LABS: Basophils Absolute Auto 0.1 X10*3/uL (0.0-0.2); Basophils Percent Auto 1.1 % (0-2); Eosinophils Absolute Auto 0.2 X10*3/uL (0.0-0.4); Eosinophils Percent Auto 2.1 % (0-4); Hemoglobin 12.7 g/dl (12.0-16.0); Imm Gran Abs Auto 0.04 X10*3/uL (0.00-0.03); Imm Gran Pct Auto 0.4 % (0.0-0.4); Lymphocytes Absolute Auto 1.8 X10*3/uL (1.2-4.9); Lymphocytes Percent Auto 17.3 % (20-40); Mean Corpuscular HGB Conc 31.8 g/dl (31.0-35.0); Mean Corpuscular Hemoglobin 26.8 pg (27.0-33.0); Mean Corpuscular Volume 84.6 fL (80.0-98.0); Mean Platelet Volume 10.6 fL (9.4-12.3); Monocytes Absolute Auto 0.6 X10*3/uL (0.1-1.2); Neutrophils Absolute Auto 7.7 x10*3/uL (2.0-8.3); Neutrophils Percent Auto 73.1 % (45-73); Platelet Count 166 X10*3/uL (160-400); Red Blood Count 4.73 X10*6/uL (4.20-5.50); White Blood Count 10.5 X10*3/uL (4.8-10.8)
[2021-08-01 14:59] LABS: Anion Gap 15 (12-20); Blood Urea Nitrogen 15 mg/dL (9-16); Calcium 10.2 mg/dL (8.4-10.2); Carbon Dioxide 25 mmol/L (22-29); Chloride 104 mmol/L (96-108); Creatinine Clr Calc Pharmacy 95.3; Estimated Glomerular Filt Rate > 60; Glucose Random 180 mg/dL (60-115); Sodium 140 mmol/L (135-145)
[2021-08-01 15:20] VITALS: BP 155/93; PULSE 97; RESP 20; TEMP 37.1; O2SAT 95
--- NOTE | 2021-08-01 15:21 | ED.SKABFB ---
HPI - Skin/Abscess/Foreign Bdy General Chief complaint: General Medical Stated complaint: Wound on butt/MRSA Time Seen by Provider: 08/01/21 15:09 Source: patient Mode of arrival: ambulatory Limitations: no limitations History of Present Illness MD complaint: abscess/boil and lesion Onset (ago): week(s) (3) Tetanus up to date: yes Location: generalized (abdominal wall ) and buttocks Severity: moderate Quality: aching, dull and pruritic Pain Consistency: constant Relieving factors: none Exacerbating factors: palpation and movement Context: other (hx of picking at her skin unsure why longstanding, hx of MRSA) Associated symptoms: chills, nausea and malaise Treatments prior to arrival: bandages Related Data Home Medications Medication Instructions Recorded Confirmed albuterol sulfate 2.5 mg INHALATION Q4H PRN 04/20/21 04/20/21 albuterol sulfate 90 mcg/actuation 2 puff INHALATION Q4H PRN 04/20/21 04/20/21 aerosol inhaler cholecalciferol (vitamin D3) 1,250 1,250 mcg PO SA 04/20/21 04/20/21 mcg (50,000 unit) capsule clonazepam 1 mg tablet 1.5 mg PO BEDTIME 04/20/21 04/20/21 fluticasone propionate 50 1 spray INTRANASAL DAILY PRN 04/20/21 04/20/21 mcg/actuation nasal spray,suspension hydroxyzine HCl 50 mg tablet 1 tab PO BID@1200,2100 PRN 04/20/21 04/20/21 ibuprofen 800 mg tablet 1 tab PO BID PRN 04/20/21 04/20/21 omeprazole 20 mg capsule,delayed 1 cap PO DAILY 04/20/21 04/20/21 release trazodone 100 mg tablet 300 mg PO BEDTIME 04/20/21 04/20/21 Previous Rx's Medication Instructions Recorded dexamethasone 6 mg tablet 6 mg PO DAILY #3 tab 04/26/21 nystatin 100,000 unit/mL oral 500,000 unit PO QID 7 Days #140 ml 04/26/21 suspension cephalexin 500 mg capsule 500 mg PO TID 7 Days #21 cap 08/01/21 doxycycline hyclate 100 mg capsule 100 mg PO BID 7 Days #14 cap 08/01/21 morphine 15 mg immediate release 15 mg PO TID PRN #10 tab 08/01/21 tablet mupirocin 2 % topical ointment 1 appl TOPICAL BID 7 Days #15 g 08/01/21 ondansetron 4 mg disintegrating 4 mg PO Q8H PRN #20 tab 08/01/21 tablet Allergies Allergy/AdvReac Type Severity Reaction Status Date / Time adhesive tape Allergy Rash Verified 08/01/21 11:57 amoxicillin AdvReac Diarrhea Verified 08/01/21 16:45 Review of Systems Review of Systems: Constitutional : pos Fever, pos Chills ENT/Mouth : No sore throat, No Rhinorrhea Eyes: No Eye Pain, No Swelling, No Redness Cardiovascular : No Chest Pain, No SOB Respiratory : No Cough, No Sputum Gastrointestinal : pos Nausea, No Vomiting, No Diarrhea, No abdominal Pain Genitourinary : No Dysuria, No Hematuria Musculoskeletal : No joint pain, No Myalgias, No Joint Swelling Skin : pos Skin Lesions, positive skin rash Neuro : No Weakness, No Numbness, No Headache Psych : No Anxiety, No Depression Heme/Lymph: No Bruising, No Bleeding,No Lymphadenopathy Endocrine : No Polyuria, No Polydipsia All other systems reviewed and are negative [facility] Past Medical History Attestation statement: The following information was validated with the patient. Medical History (Updated 08/01/21 @ 17:13 by Dorita Galeano DO) Anxiety and depression COPD (chronic obstructive pulmonary disease) COPD (chronic obstructive pulmonary disease) COVID-19 MRSA (methicillin resistant staph aureus) culture positive Pneumonia Surgical History History of back surgery History of cholecystectomy Family History Family History Other No pertinent family history Social History Social History Household Members: Family Housing: House Alcohol intake: current Patient Tobacco Use Status: Former Tobacco user Tobacco use type: Cigarette Advance Directives: No Advance Directives Information Provided: No Patient : No service: No Current occupational status: disabled Physical Exam Vital Signs: Vital Signs: Last Vital Signs Temp 98.1 F 08/01/21 17:50 Pulse 90 08/01/21 17:50 Resp 20 08/01/21 17:50 BP 152/84 H 08/01/21 17:50 Pulse Ox 95 08/01/21 17:50 BMI result Body Mass Index 53.1 Appearance: Alert. Oriented X3. No acute distress. Eyes: Pupils equal, round and reactive to light. ENT: Pharynx normal. Neck: Normal inspection. Neck supple. CVS: Normal heart rate and rhythm. Pulses normal. Respiratory: No respiratory distress. Breath sounds normal. Abdomen: Soft and nontender. two non bleeding picked circular lesions on R abdominal wall - I covered with sterile dressing, R buttock mild erythematous non fluctuant area with excoriated circular picked area with white material noted but not purulent - very tender to touch no crepitus noted Skin: Skin warm and dry. Normal skin color. Normal skin turgor. Extremities: No lower extremity edema. No calf ttp Neuro: Oriented X 3. No motor deficit. No sensory deficit. Course Course Course Narrative: negative lactic acid, no WBC count, afebrile - no collection on CT scan can be DC home with dual oral antibiotics and pain medications at this time patient refusing acute STR has VNA at home as well MDM - Skin/Abscess/Foreign Bdy MDM Narrative Medical decision making narrative: 60 yo female with hx of depression, pneumonia, COPD, MRSA skin infections in the past, at this time c/o lesions on abdomen which are not infected, R buttock with mild cellulitis I do not appreciate a fluctuant mass and I do not feel crepitus she does not have DM so allegra's seems unlikely. Will obtain labs, cultures, lactic acid, CT scan for deeper infection, IV antiboitics, IV morphine for pain. R buttock area externally is not terrible and will likely be amenable to oral antibiotics, wound care and pain medications at home pending labs. Lab Data Result diagrams: 08/01/21 14:36 08/01/21 14:36 Labs: Lab Results 08/01/21 08/01/21 08/01/21 Range/Units 14:36 14:36 15:42 WBC 10.5 (4.8-10.8) X10*3/uL RBC 4.73 (4.20-5.50) X10*6/uL Hgb 12.7 (12.0-16.0) g/dl Hct 40.0 (37.0-47.0) % MCV 84.6 (80.0-98.0) fL MCH 26.8 L (27.0-33.0) pg MCHC 31.8 (31.0-35.0) g/dl RDW 16.0 (11.0-16.0) % Plt Count 166 D (160-400) X10*3/uL MPV 10.6 (9.4-12.3) fL Immature Gran % (Auto) 0.4 (0.0-0.4) % Neut % (Auto) 73.1 H (45-73) % Lymph % (Auto) 17.3 L (20-40) % [place] % (Auto) 6.0 (2-11) % Eos % (Auto) 2.1 (0-4) % Baso % (Auto) 1.1 (0-2) % Lymph # (Auto) 1.8 (1.2-4.9) X10*3/uL [place] # (Auto) 0.6 (0.1-1.2) X10*3/uL Eos # (Auto) 0.2 (0.0-0.4) X10*3/uL Baso # (Auto) 0.1 (0.0-0.2) X10*3/uL Abs Immat Gran (auto) 0.04 H (0.00-0.03) X10*3/uL Absolute Neuts (auto) 7.7 (2.0-8.3) x10*3/uL Absolute Nucleated RBC 0.000 (0.0-0.012) X10*3/uL Nucleated RBC % (auto) 0.0 (0.0-0.2) /100WBC Sodium 140 (135-145) mmol/L Potassium 4.0 (3.3-5.1) mmol/L Chloride 104 (96-108) mmol/L Carbon Dioxide 25 (22-29) mmol/L Anion Gap 15 (12-20) BUN 15 (9-16) mg/dL Creatinine 0.84 (0.5-1.4) mg/dL Estim Creat Clear Calc 95.3 Estimated GFR > 60 Random Glucose 180 H (60-115) mg/dL Lactic Acid 1.5 (0.5-2.0) mmol/L Calcium 10.2 D (8.4-10.2) mg/dL Urine Color Urine Appearance Urine pH (5.0-8.0) Ur Specific [place] (1.005-1.025) Urine Protein (NEG-TRACE) MG/DL Urine Glucose (UA) (NEG) MG/DL Urine Ketones (NEG) MG/DL Urine Blood (NEG) Urine Nitrite (NEG) Ur Leukocyte Esterase (NEG) Urine RBC (0) /HPF Urine WBC (0-4) /HPF Ur Squamous Epith Cells /LPF Urine Bacteria /LPF Urine Mucus /LPF 08/01/21 Range/Units 17:31 WBC (4.8-10.8) X10*3/uL RBC (4.20-5.50) X10*6/uL Hgb (12.0-16.0) g/dl Hct (37.0-47.0) % MCV (80.0-98.0) fL MCH (27.0-33.0) pg MCHC (31.0-35.0) g/dl RDW (11.0-16.0) % Plt Count (160-400) X10*3/uL MPV (9.4-12.3) fL Immature Gran % (Auto) (0.0-0.4) % Neut % (Auto) (45-73) % Lymph % (Auto) (20-40) % [place] % (Auto) (2-11) % Eos % (Auto) (0-4) % Baso % (Auto) (0-2) % Lymph # (Auto) (1.2-4.9) X10*3/uL [place] # (Auto) (0.1-1.2) X10*3/uL Eos # (Auto) (0.0-0.4) X10*3/uL Baso # (Auto) (0.0-0.2) X10*3/uL Abs Immat Gran (auto) (0.00-0.03) X10*3/uL Absolute Neuts (auto) (2.0-8.3) x10*3/uL Absolute Nucleated RBC (0.0-0.012) X10*3/uL Nucleated RBC % (auto) (0.0-0.2) /100WBC Sodium (135-145) mmol/L Potassium (3.3-5.1) mmol/L Chloride (96-108) mmol/L Carbon Dioxide (22-29) mmol/L Anion Gap (12-20) BUN (9-16) mg/dL Creatinine (0.5-1.4) mg/dL Estim Creat Clear Calc Estimated GFR Random Glucose (60-115) mg/dL Lactic Acid (0.5-2.0) mmol/L Calcium (8.4-10.2) mg/dL Urine Color YELLOW Urine Appearance CLOUDY Urine pH 6.0 (5.0-8.0) Ur Specific [place] 1.025 (1.005-1.025) Urine Protein TRACE (NEG-TRACE) MG/DL Urine Glucose (UA) 100 H (NEG) MG/DL Urine Ketones NEG (NEG) MG/DL Urine Blood TRACE (NEG) Urine Nitrite POS H (NEG) Ur Leukocyte Esterase TRACE H (NEG) Urine RBC 1-4 (0) /HPF Urine WBC 30-49 H (0-4) /HPF Ur Squamous Epith Cells 1+ /LPF Urine Bacteria 4+ /LPF Urine Mucus 3+ /LPF Discharge Plan Discharge Clinical Impression: Excoriation (skin-picking) disorder Cellulitis Qualifiers: Site of cellulitis: buttock Qualified Code(s): L03.317 - Cellulitis of buttock Patient Disposition: Home, Self-Care Instructions: Cellulitis (ED) Additional Instructions: return to ED for any worsening symptoms or concerns if you change your mind and need acute rehab please return to the ED Prescriptions: New doxycycline hyclate 100 mg capsule 100 mg PO BID 7 Days Qty: 14 0RF cephalexin 500 mg capsule 500 mg PO TID 7 Days Qty: 21 0RF mupirocin 2 % ointment 1 appl topical BID 7 Days Qty: 15 0RF ondansetron 4 mg tablet,disintegrating 4 mg PO Q8H PRN (Reason: nausea and vomiting) Qty: 20 0RF morphine 15 mg tablet 15 mg PO TID PRN (Reason: pain) Qty: 10 0RF Rx Instructions: partial fill okay No Action trazodone 100 mg tablet 300 mg PO BEDTIME 0RF albuterol sulfate 2.5 mg /3 mL (0.083 %) solution for nebulization 2.5 mg inhalation Q4H PRN (Reason: SOB) 0RF clonazepam 1 mg tablet 1.5 mg PO BEDTIME 0RF albuterol sulfate 90 mcg/actuation HFA aerosol inhaler 2 puff inhalation Q4H PRN (Reason: Wheezing) 0RF cholecalciferol (vitamin D3) 1,250 mcg (50,000 unit) capsule 1,250 mcg PO SA 0RF Rx Instructions: Only on Saturdays ibuprofen 800 mg tablet 1 tab PO BID PRN (Reason: Pain) 0RF hydroxyzine HCl 50 mg tablet 1 tab PO BID@1200,2100 PRN (Reason: Anxiety) 0RF omeprazole 20 mg capsule,delayed release(DR/EC) 1 cap PO DAILY 0RF fluticasone propionate 50 mcg/actuation spray,suspension 1 spray intranasal DAILY PRN (Reason: Allergy Symptoms) 0RF nystatin 100,000 unit/mL Suspension 500,000 unit PO QID 7 Days Qty: 140 0RF Protocol: Apply to: Apply to: swish and swallow dexamethasone 6 mg tablet 6 mg PO DAILY Qty: 3 0RF Referrals: Bety Trujillo MD [Primary Care Provider] - 3 days (wound check) Interventions: ED Discharge Assessment Last Done: 08/01/21 18:36 Discharge Date/Time: 08/01/21 18:37
[2021-08-01 16:04] LABS: Lactic Acid 1.5 mmol/L (0.5-2.0)
[2021-08-01] MEDS: Morphine Sulfate 4 MG/ML CARTRIDGE IVPUSH (16:56)
[2021-08-01] MEDS: Piperacillin Sodium/Tazobactam 3.375 GM in 0.9 % Sodium Chloride 50 ML IV (16:57)
[2021-08-01 17:48] LABS: Appearance Urine CLOUDY; Color Urine YELLOW; Glucose Urine UA 100 MG/DL (NEG); Leukocyte Esterase Urine TRACE (NEG); Nitrite Urine POS (NEG); Specific Gravity - Urine 1.025 (1.005-1.025); UACC Culture Trigger YES; Urine Blood TRACE (NEG); Urine Ketones NEG (NEG); Urine Protein TRACE MG/DL (NEG-TRACE)
[2021-08-01 17:50] VITALS: BP 152/84; PULSE 90; RESP 20; TEMP 36.7; O2SAT 95
[2021-08-01] MEDS: Morphine Sulfate Immed Release 15 MG TABLET PO (17:54)
[2021-08-01 18:05] LABS: WBC Urine 30-49 /HPF (0-4)
[2021-08-01 18:06] LABS: Bacteria Urine 4+ /LPF; Mucus Urine 3+ /LPF; Squamous Epithelial Cell Urine 1+ /LPF
== END 2021-08-01 18:37 | disposition home or self-care (01) ==
PROVIDERS: Emergency Provider Emergency Medicine; PCP Internal Medicine
DX: L03.317 Cellulitis of buttock (principal); F42.4 Excoriation (skin-picking) disorder; J44.9 Chronic obstructive pulmonary disease, unspecified; Z86.14 Personal history of Methicillin resistant Staphylococcus aureus infection
CPT/HCPCS: 36415; 74176; 80048; 81001; 83605; 85025; 87040; 87086; 87088; 87186; 96365; 96375; 99284; J2270; J2543

== ENCOUNTER 2021-11-30 14:02 | Emergency (ER) | payer MEDICAID, SELFPAY ==
[2021-11-30 14:57] VITALS: BP 126/70; BP 132/76; PULSE 91; RESP 18; O2SAT 93; O2SAT 95; BMI 53.1
--- NOTE | 2021-11-30 15:17 | ECG_ITS ---
Test Reason : SOB Blood Pressure : / mmHG Vent. Rate : 091 BPM Atrial Rate : 091 BPM P-R Int : 124 ms QRS Dur : 078 ms QT Int : 366 ms P-R-T Axes : 048 004 010 degrees QTc Int : 450 ms Normal sinus rhythm Minimal voltage criteria for LVH, may be normal variant ( R in aVL ) Nonspecific ST and T wave abnormality Abnormal ECG When compared with ECG of 19-APR-2021 22:52, Nonspecific ST and T wave abnormality is now Present Referred By: Shannan Mariee Electronically Signed By:FRANCESCA GOMEZ
[2021-11-30 15:21] LABS: Glucose, Whole Blood 361 mg/dL (60-115)
--- NOTE | 2021-11-30 16:03 | ED_ITS ---
HPI - General Adult General Chief complaint: Dyspnea Stated complaint: FEELING SICK FOR 3 DAYS PER EMS Time Seen by Provider: 11/30/21 15:07 Source: patient and EMS Mode of arrival: EMS Limitations: no limitations History of Present Illness HPI narrative: Patient comes to the emergency room complaining of 3 days of nausea, no vomiting, complaining of feeling very thirsty, urinating a lot, diffuse abdominal cramping but feeling very hungry. Patient states that to her knowledge she is not diabetic. Denies URI symptoms, no hematuria or dysuria. Related Data Home Medications Medication Instructions Recorded Confirmed albuterol sulfate 2.5 mg/3 mL 2.5 mg inhalation Q4H PRN SOB 04/20/21 04/20/21 (0.083 %) solution for nebulization albuterol sulfate 90 mcg/actuation 2 puff inhalation Q4H PRN Wheezing 04/20/21 04/20/21 aerosol inhaler cholecalciferol (vitamin D3) 1,250 1,250 mcg PO SA 04/20/21 04/20/21 mcg (50,000 unit) capsule clonazepam 1 mg tablet 1.5 mg PO BEDTIME 04/20/21 04/20/21 fluticasone propionate 50 1 spray intranasal DAILY PRN 04/20/21 04/20/21 mcg/actuation nasal Allergy Symptoms spray,suspension hydroxyzine HCl 50 mg tablet 1 tab PO BID@1200,2100 PRN Anxiety 04/20/21 04/20/21 ibuprofen 800 mg tablet 1 tab PO BID PRN Pain 04/20/21 04/20/21 omeprazole 20 mg capsule,delayed 1 cap PO DAILY 04/20/21 04/20/21 release trazodone 100 mg tablet 300 mg PO BEDTIME 04/20/21 04/20/21 Previous Rx's Medication Instructions Recorded dexamethasone 6 mg tablet 6 mg PO DAILY #3 tabs 04/26/21 nystatin 100,000 unit/mL oral 500,000 unit PO QID 7 days #140 mL 04/26/21 suspension cephalexin 500 mg capsule 500 mg PO TID 7 days #21 caps 08/01/21 doxycycline hyclate 100 mg capsule 100 mg PO BID 7 days #14 caps 08/01/21 morphine 15 mg immediate release 15 mg PO TID PRN pain #10 tabs 08/01/21 tablet mupirocin 2 % topical ointment 1 appl topical BID 7 days #15 grams 08/01/21 ondansetron 4 mg disintegrating 4 mg PO Q8H PRN nausea and 08/01/21 tablet vomiting #20 tabs B.coagulans 2 billion 1 cap PO .qd #30 caps 11/30/21 cell-digestive enzymes combo no.10 capsule (Digestive Advantage Probiotics Plus Gas) cefuroxime axetil 500 mg tablet 500 mg PO BID #14 tabs 11/30/21 metformin 500 mg tablet 500 mg PO BID #60 tabs 11/30/21 miconazole nitrate 2 % vaginal 1 appful vaginal BEDTIME 7 days 11/30/21 cream #45 grams Allergies Allergy/AdvReac Type Severity Reaction Status Date / Time adhesive tape Allergy Rash Verified 08/01/21 11:57 amoxicillin AdvReac Diarrhea Verified 08/01/21 16:45 Review of Systems Review of Systems: Constitutional : No Weight loss, No Fever, No Chills, No Night Sweats, No Fatigue, No Malaise ENT/Mouth : No Hearing loss, No Ear Pain, No Nasal Congestion, No Sinus Pain, No Hoarseness, No sore throat, No Rhinorrhea, No Swallowing Difficulty Eyes: No Eye Pain, No Swelling, No Redness, No Foreign Body, No Discharge, No Vision Changes Cardiovascular : No Chest Pain, No SOB, No Dyspnea on Exertion, No Orthopnea, No Edema, No Palpitations Respiratory : No Cough, No Sputum, No Wheezing, No Smoke Exposure, No Dyspnea Gastrointestinal : Complaining of nausea, No Vomiting, No Diarrhea, No Constipation, complaining of diffuse abdominal cramping, No Hematochezia, No Melena Genitourinary : no irregular bleeding, No Dysuria, No Urinary Frequency, No Hematuria, No Urinary Incontinence, No Urgency, No Flank Pain, No Urinary Flow Changes, No Hesitancy Musculoskeletal : No joint pain, No Myalgias, No Joint Swelling Skin : No Skin Lesions, No rash Neuro : No Weakness, No Numbness, No Paresthesias, No Loss of Consciousness, No Dizziness, No Headache Psych : No Anxiety/Panic, No Depression, No SI/HI/AH/VH, No Social Issues, Heme/Lymph: No Bruising, No Bleeding,No Lymphadenopathy Endocrine : Patient complaining of polyuria and polydipsia PMFSH Past Medical History Medical History Anxiety and depression COPD (chronic obstructive pulmonary disease) COPD (chronic obstructive pulmonary disease) COVID-19 MRSA (methicillin resistant staph aureus) culture positive Pneumonia Surgical History History of back surgery History of cholecystectomy Family History Family History Other No pertinent family history Social History Social History Household Members: Family Housing: House Alcohol intake: never Patient Tobacco Use Status: Current everyday Tobacco user Tobacco use type: Cigarette Advance Directives: No Advance Directives Information Provided: No service: No Current occupational status: disabled Physical Exam ED Vital Signs: Vital Signs - 24 hr 11/30/21 14:57 11/30/21 17:27 Temperature 98.4 F Pulse Rate 91 92 Respiratory Rate 18 20 Blood Pressure 132/76 150/74 H Pulse Oximetry 93 91 L Oxygen Delivery Method Room Air Room Air BMI result Body Mass Index 53.1 Const Other: Appearance: Alert. Oriented X3. No acute distress. Eyes: Pupils equal, round and reactive to light. ENT: Pharynx normal. Dry lips Neck: Normal inspection. Neck supple. No lymph nodes noted. No crepitus CVS: Normal heart rate and rhythm. Pulses normal. Normal S1 and S2 Respiratory: No respiratory distress. Breath sounds normal. No Wheezing. No rales Abdomen: Soft and nontender. No rigidity. No distention. Skin: Skin warm and dry. Normal skin color. Normal skin turgor. Extremities: No lower extremity edema. No Lacerations. No Rash Neuro: Oriented X 3. No motor deficit. No sensory deficit. Moving all extremities. No slurred speech. CN 2 through 12 grossly intact Psych: calm, cooperative, anxious Course Course Course Narrative: On arrival, patient's point of care is 361. The patient's knowledge, this is th e 1st time that her glucose has been this high, never has been diagnosed with diabetes. Of patient's labs are pending. Patient receiving IV fluids and 5 units of insulin. DKA is not suspected, negative for ketones, anion gap is closed Patient has a UTI, patient states she is prone to them. Patient was given 1 dose of ceftriaxone. Patient has no fever, normal blood pressure. Normal white blood cell count. Sepsis is not suspected. Patient requesting medication for vaginal itching since she is going to be on antibiotics. Patient's blood glucose 253. Patient states that she feels much better, no longer having abdominal pain, nausea. Patient will be started on metformin and she will have close follow-up with her primary care physician. I discussed with the patient to expect bloating and possibly diarrhea from metformin. Patient agrees with plan Medical Decision Making Lab Data Result diagrams: 11/30/21 16:03 11/30/21 16:03 Labs: Lab Results 11/30/21 11/30/21 11/30/21 Range/Units 15:04 16:03 16:03 WBC 5.3 (4.8-10.8) X10*3/uL RBC 4.46 (4.20-5.50) X10*6/uL Hgb 11.1 L (12.0-16.0) g/dl Hct 36.1 L (37.0-47.0) % MCV 80.9 (80.0-98.0) fL MCH 24.9 L (27.0-33.0) pg MCHC 30.7 L (31.0-35.0) g/dl RDW 17.2 H (11.0-16.0) % Plt Count 119 L D (160-400) X10*3/uL MPV 11.1 (9.4-12.3) fL Immature Gran % (Auto) 0.4 (0.0-0.4) % Neut % (Auto) 73.8 H (45-73) % Lymph % (Auto) 15.2 L (20-40) % [place] % (Auto) 8.3 (2-11) % Eos % (Auto) 1.5 (0-4) % Baso % (Auto) 0.8 (0-2) % Lymph # (Auto) 0.8 L (1.2-4.9) X10*3/uL [place] # (Auto) 0.4 (0.1-1.2) X10*3/uL Eos # (Auto) 0.1 (0.0-0.4) X10*3/uL Baso # (Auto) 0.0 (0.0-0.2) X10*3/uL Abs Immat Gran (auto) 0.02 (0.00-0.03) X10*3/uL Absolute Neuts (auto) 3.9 (2.0-8.3) x10*3/uL Absolute Nucleated RBC 0.000 (0.0-0.012) X10*3/uL Nucleated RBC % (auto) 0.0 (0.0-0.2) /100WBC VBG pH (7.32-7.43) VBG pCO2 mmHg VBG pO2 mmHg VBG HCO3 (22-26) mmol/L VBG O2 Saturation % VBG Base Excess mmol/L Sodium 138 (135-145) mmol/L Potassium 4.2 (3.3-5.1) mmol/L Chloride 101 (96-108) mmol/L Carbon Dioxide 25 (22-29) mmol/L Anion Gap 16 (12-20) BUN 17 H (9-16) mg/dL Creatinine 0.90 (0.5-1.4) mg/dL Estim Creat Clear Calc 87.8 Estimated GFR > 60 POC Glucose 361 H* (60-115) mg/dL Random Glucose 388 H* (60-115) mg/dL Estimat Average Glucose mg/dL Hemoglobin A1c % % Calcium 9.3 D (8.4-10.2) mg/dL Magnesium 1.6 (1.6-2.6) mg/dL Total Bilirubin 0.5 (0.0-1.0) mg/dL Direct Bilirubin 0.3 (0.0-0.5) mg/dL AST 33 H (5-31) U/L ALT 27 (0-31) U/L Alkaline Phosphatase 140 H D (39-117) U/L Troponin I High Sens (<3.5-17.0) ng/L Total Protein 8.2 H D (6.5-8.0) g/dL Albumin 3.8 D (3.5-5.0) g/dL Lipase 36 (8-78) U/L Urine Color Urine Appearance Urine pH (5.0-9.0) Ur Specific [place] (1.005-1.025) Urine Protein (Neg-Trace) mg/dL Urine Glucose (UA) (Negative) mg/dL Urine Ketones (Negative) mg/dL Urine Blood (Negative) Urine Nitrite (Negative) Ur Leukocyte Esterase (Negative) Urine RBC (0-2) /HPF Urine WBC (0-5) /HPF Ur Squamous Epith Cells (0-2) /HPF Urine Bacteria (None Seen) Hyaline Casts (0-2) /LPF Urine Yeast Acetone, Qual Negative (Negative) COVID-19 ([facility]ON) (Negative) COVID-19 Clin Com 11/30/21 11/30/21 11/30/21 Range/Units 16:03 16:03 16:03 WBC (4.8-10.8) X10*3/uL RBC (4.20-5.50) X10*6/uL Hgb (12.0-16.0) g/dl Hct (37.0-47.0) % MCV (80.0-98.0) fL MCH (27.0-33.0) pg MCHC (31.0-35.0) g/dl RDW (11.0-16.0) % Plt Count (160-400) X10*3/uL MPV (9.4-12.3) fL Immature Gran % (Auto) (0.0-0.4) % Neut % (Auto) (45-73) % Lymph % (Auto) (20-40) % [place] % (Auto) (2-11) % Eos % (Auto) (0-4) % Baso % (Auto) (0-2) % Lymph # (Auto) (1.2-4.9) X10*3/uL [place] # (Auto) (0.1-1.2) X10*3/uL Eos # (Auto) (0.0-0.4) X10*3/uL Baso # (Auto) (0.0-0.2) X10*3/uL Abs Immat Gran (auto) (0.00-0.03) X10*3/uL Absolute Neuts (auto) (2.0-8.3) x10*3/uL Absolute Nucleated RBC (0.0-0.012) X10*3/uL Nucleated RBC % (auto) (0.0-0.2) /100WBC VBG pH (7.32-7.43) VBG pCO2 mmHg VBG pO2 mmHg VBG HCO3 (22-26) mmol/L VBG O2 Saturation % VBG Base Excess mmol/L Sodium (135-145) mmol/L Potassium (3.3-5.1) mmol/L Chloride (96-108) mmol/L Carbon Dioxide (22-29) mmol/L Anion Gap (12-20) BUN (9-16) mg/dL Creatinine (0.5-1.4) mg/dL Estim Creat Clear Calc Estimated GFR POC Glucose (60-115) mg/dL Random Glucose (60-115) mg/dL Estimat Average Glucose 263 mg/dL Hemoglobin A1c % 10.8 % Calcium (8.4-10.2) mg/dL Magnesium (1.6-2.6) mg/dL Total Bilirubin (0.0-1.0) mg/dL Direct Bilirubin (0.0-0.5) mg/dL AST (5-31) U/L ALT (0-31) U/L Alkaline Phosphatase (39-117) U/L Troponin I High Sens 3.7 (<3.5-17.0) ng/L Total Protein (6.5-8.0) g/dL Albumin (3.5-5.0) g/dL Lipase (8-78) U/L Urine Color Urine Appearance Urine pH (5.0-9.0) Ur Specific [place] (1.005-1.025) Urine Protein (Neg-Trace) mg/dL Urine Glucose (UA) (Negative) mg/dL Urine Ketones (Negative) mg/dL Urine Blood (Negative) Urine Nitrite (Negative) Ur Leukocyte Esterase (Negative) Urine RBC (0-2) /HPF Urine WBC (0-5) /HPF Ur Squamous Epith Cells (0-2) /HPF Urine Bacteria (None Seen) Hyaline Casts (0-2) /LPF Urine Yeast Acetone, Qual (Negative) COVID-19 ([facility]ON) Negative (Negative) COVID-19 Clin Com See Note 11/30/21 11/30/21 11/30/21 Range/Units 16:03 16:10 17:42 WBC (4.8-10.8) X10*3/uL RBC (4.20-5.50) X10*6/uL Hgb (12.0-16.0) g/dl Hct (37.0-47.0) % MCV (80.0-98.0) fL MCH (27.0-33.0) pg MCHC (31.0-35.0) g/dl RDW (11.0-16.0) % Plt Count (160-400) X10*3/uL MPV (9.4-12.3) fL Immature Gran % (Auto) (0.0-0.4) % Neut % (Auto) (45-73) % Lymph % (Auto) (20-40) % [place] % (Auto) (2-11) % Eos % (Auto) (0-4) % Baso % (Auto) (0-2) % Lymph # (Auto) (1.2-4.9) X10*3/uL [place] # (Auto) (0.1-1.2) X10*3/uL Eos # (Auto) (0.0-0.4) X10*3/uL Baso # (Auto) (0.0-0.2) X10*3/uL Abs Immat Gran (auto) (0.00-0.03) X10*3/uL Absolute Neuts (auto) (2.0-8.3) x10*3/uL Absolute Nucleated RBC (0.0-0.012) X10*3/uL Nucleated RBC % (auto) (0.0-0.2) /100WBC VBG pH 7.39 (7.32-7.43) VBG pCO2 42 mmHg VBG pO2 46 mmHg VBG HCO3 26 (22-26) mmol/L VBG O2 Saturation 67.0 % VBG Base Excess 1.0 mmol/L Sodium (135-145) mmol/L Potassium (3.3-5.1) mmol/L Chloride (96-108) mmol/L Carbon Dioxide (22-29) mmol/L Anion Gap (12-20) BUN (9-16) mg/dL Creatinine (0.5-1.4) mg/dL Estim Creat Clear Calc Estimated GFR POC Glucose 290 H (60-115) mg/dL Random Glucose (60-115) mg/dL Estimat Average Glucose mg/dL Hemoglobin A1c % % Calcium (8.4-10.2) mg/dL Magnesium (1.6-2.6) mg/dL Total Bilirubin (0.0-1.0) mg/dL Direct Bilirubin (0.0-0.5) mg/dL AST (5-31) U/L ALT (0-31) U/L Alkaline Phosphatase (39-117) U/L Troponin I High Sens (<3.5-17.0) ng/L Total Protein (6.5-8.0) g/dL Albumin (3.5-5.0) g/dL Lipase (8-78) U/L Urine Color Yellow Urine Appearance Cloudy Urine pH 6.0 (5.0-9.0) Ur Specific [place] >= 1.030 H (1.005-1.025) Urine Protein Negative (Neg-Trace) mg/dL Urine Glucose (UA) >=1000 H (Negative) mg/dL Urine Ketones Negative (Negative) mg/dL Urine Blood Trace H (Negative) Urine Nitrite Positive H (Negative) Ur Leukocyte Esterase Small (1+) H (Negative) Urine RBC 0-2 (0-2) /HPF Urine WBC >50 H (0-5) /HPF Ur Squamous Epith Cells 0-2 (0-2) /HPF Urine Bacteria 4+ (None Seen) Hyaline Casts 0-2 (0-2) /LPF Urine Yeast Present Acetone, Qual (Negative) COVID-19 ([facility]) (Negative) COVID-19 Clin Com Discharge Plan Discharge Clinical Impression: New onset type 2 diabetes mellitus, Urinary tract infection Patient Disposition: Home, Self-Care Instructions: Urinary Tract Infection in Women (ED), Type 2 Diabetes in Adults: New Diagnosis (ED), Diabetes and Exercise (ED) Additional Instructions: Please follow-up with your primary care physician tomorrow. If you have any worsening or new symptoms, please return to the emergency room or call 911 Prescriptions: New cefuroxime axetil 500 mg tablet 500 mg PO BID Qty: 14 0RF metformin 500 mg tablet 500 mg PO BID Qty: 60 1RF Digest Adv Probio Plus Gas 2 billion cell capsule 1 cap PO .qd Qty: 30 0RF miconazole nitrate 2 % cream 1 appful vaginal BEDTIME 7 Days Qty: 45 0RF No Action trazodone 100 mg tablet 300 mg PO BEDTIME albuterol sulfate 2.5 mg /3 mL (0.083 %) solution for nebulization 2.5 mg inhalation Q4H PRN (Reason: SOB) clonazepam 1 mg tablet 1.5 mg PO BEDTIME albuterol sulfate 90 mcg/actuation HFA aerosol inhaler 2 puff inhalation Q4H PRN (Reason: Wheezing) cholecalciferol (vitamin D3) 1,250 mcg (50,000 unit) capsule 1,250 mcg PO SA Rx Instructions: Only on Saturdays ibuprofen 800 mg tablet 1 tab PO BID PRN (Reason: Pain) hydroxyzine HCl 50 mg tablet 1 tab PO BID@1200,2100 PRN (Reason: Anxiety) omeprazole 20 mg capsule,delayed release(DR/EC) 1 cap PO DAILY fluticasone propionate 50 mcg/actuation spray,suspension 1 spray intranasal DAILY PRN (Reason: Allergy Symptoms) nystatin 100,000 unit/mL Suspension 500,000 unit PO QID 7 Days Qty: 140 0RF Protocol: Apply to: Apply to: swish and swallow dexamethasone 6 mg tablet 6 mg PO DAILY Qty: 3 0RF doxycycline hyclate 100 mg capsule 100 mg PO BID 7 Days Qty: 14 0RF cephalexin 500 mg capsule 500 mg PO TID 7 Days Qty: 21 0RF mupirocin 2 % ointment 1 appl topical BID 7 Days Qty: 15 0RF ondansetron 4 mg tablet,disintegrating 4 mg PO Q8H PRN (Reason: nausea and vomiting) Qty: 20 0RF morphine 15 mg tablet 15 mg PO TID PRN (Reason: pain) Qty: 10 0RF Rx Instructions: partial fill okay
[2021-11-30] MEDS: 0.9 % Sodium Chloride 2,000 ML 999 ML IVCONT (16:11)
[2021-11-30 16:12] LABS: MANUAL DIFF FLAG NO
[2021-11-30] MEDS: Insulin Regular, Human 100 UNIT/ML 3 ML VIAL IVPUSH (16:15)
[2021-11-30 16:16] LABS: VBG HCO3 26 mmol/L (22-26); VBG pCO2 42 mmHg; VBG pH 7.39 (7.32-7.43); VBG pO2 46 mmHg
[2021-11-30 16:16] LABS: Venous Blood Gas Refer to POC result
[2021-11-30 16:18] LABS: Basophils Percent Auto 0.8 % (0-2); Eosinophils Absolute Auto 0.1 X10*3/uL (0.0-0.4); Eosinophils Percent Auto 1.5 % (0-4); Hematocrit 36.1 % (37.0-47.0); Hemoglobin 11.1 g/dl (12.0-16.0); Imm Gran Abs Auto 0.02 X10*3/uL (0.00-0.03); Imm Gran Pct Auto 0.4 % (0.0-0.4); Lymphocytes Absolute Auto 0.8 X10*3/uL (1.2-4.9); Lymphocytes Percent Auto 15.2 % (20-40); Mean Corpuscular HGB Conc 30.7 g/dl (31.0-35.0); Mean Corpuscular Hemoglobin 24.9 pg (27.0-33.0); Mean Corpuscular Volume 80.9 fL (80.0-98.0); Mean Platelet Volume 11.1 fL (9.4-12.3); Monocytes Absolute Auto 0.4 X10*3/uL (0.1-1.2); Monocytes Percent Auto 8.3 % (2-11); Neutrophils Absolute Auto 3.9 x10*3/uL (2.0-8.3); Neutrophils Percent Auto 73.8 % (45-73); Platelet Count 119 X10*3/uL (160-400); Red Blood Count 4.46 X10*6/uL (4.20-5.50); Red Cell Distribution Width 17.2 % (11.0-16.0); White Blood Count 5.3 X10*3/uL (4.8-10.8)
[2021-11-30 16:23] LABS: Estimated Average Glucose 263 mg/dL; Hemoglobin A1c % 10.8 %
[2021-11-30 16:29] LABS: Appearance Urine Cloudy; Color Urine Yellow; Glucose Urine UA >=1000 mg/dL (Negative); Leukocyte Esterase Urine Small (1+) (Negative); Nitrite Urine Positive (Negative); Specific Gravity - Urine >= 1.030 (1.005-1.025); Urine Blood Trace (Negative); Urine Ketones Negative (Negative); Urine Protein Negative (Neg-Trace)
[2021-11-30 16:34] LABS: COVID-19 Test Negative (Negative); IDNOW Serial# 16C4AD1C
[2021-11-30 16:38] LABS: Troponin-I High Sensitivity 3.7 ng/L (<3.5-17.0)
[2021-11-30 16:40] LABS: Alanine Aminotransferase 27 U/L (0-31); Albumin Level 3.8 g/dL (3.5-5.0); Alkaline Phosphatase 140 U/L (39-117); Anion Gap 16 (12-20); Aspartate Amino Transferase 33 U/L (5-31); Bilirubin Direct 0.3 mg/dL (0.0-0.5); Bilirubin Total 0.5 mg/dL (0.0-1.0); Blood Urea Nitrogen 17 mg/dL (9-16); Calcium 9.3 mg/dL (8.4-10.2); Carbon Dioxide 25 mmol/L (22-29); Chloride 101 mmol/L (96-108); Creatinine Clr Calc Pharmacy 87.8; Estimated Glomerular Filt Rate > 60; Glucose Random 388 mg/dL (60-115); Lipase 36 U/L (8-78); Magnesium 1.6 mg/dL (1.6-2.6); Potassium 4.2 mmol/L (3.3-5.1); Sodium 138 mmol/L (135-145); Total Protein 8.2 g/dL (6.5-8.0)
[2021-11-30 17:27] VITALS: BP 150/74; PULSE 92; RESP 20; TEMP 36.9; O2SAT 91
[2021-11-30 17:47] LABS: Bacteria Urine 4+ (None Seen); Hyaline Casts Urine 0-2 /LPF (0-2); RBC Urine 0-2 /HPF (0-2); Squamous Epithelial Cell Urine 0-2 /HPF (0-2); UACC Culture Trigger YES; WBC Urine >50 /HPF (0-5)
[2021-11-30 18:01] LABS: Glucose, Whole Blood 290 mg/dL (60-115)
[2021-11-30 18:07] LABS: Acetone, serum QL Negative (Negative)
[2021-11-30 19:44] LABS: Glucose, Whole Blood 259 mg/dL (60-115)
[2021-11-30] MEDS: cefTRIAXone sodium 1 GM in 0.9 % Sodium Chloride 50 ML IV (19:46)
[2021-11-30 20:08] VITALS: BP 130/58; RESP 16; TEMP 36.9; O2SAT 95
[2021-11-30] MEDS: Acetaminophen 325 MG TABLET 975 MG PO (20:26)
== END 2021-11-30 20:30 | disposition home or self-care (01) ==
PROVIDERS: Emergency Provider Emergency Medicine; PCP Internal Medicine
DX: E11.9 Type 2 diabetes mellitus without complications (principal); N39.0 Urinary tract infection, site not specified; B96.20 Unspecified Escherichia coli [E. coli] as the cause of diseases classified elsewhere; Z20.822 Contact with and (suspected) exposure to COVID-19; F17.210 Nicotine dependence, cigarettes, uncomplicated; Z79.899 Other long term (current) drug therapy
CPT/HCPCS: 36415; 80048; 80076; 81001; 82009; 82803; 82947; 83036; 83690; 83735; 84484; 85025; 87086; 87088; 87186; 87635; 93005; 96361; 96365; 96375; 99284; 99285; J0696